=== PATIENT | male | born 1940 | race Caucasian/White ===

== ENCOUNTER 2021-10-30 21:30 | Inpatient (IN) | payer MEDICARE, SELFPAY ==
--- NOTE | 2021-10-30 21:31 | CTR_ITS ---
PROCEDURE INFORMATION: Exam: CT Head Without Contrast Exam date and time: 10/30/2021 9:30 PM Age: 81 years old Clinical indication: Speech disturbance and weakness, extremity and weakness, facial; Right; Patient HX: Patient at [facility] and witnessed to have sudden onset of RT facial droop with dysphasia and RT arm drift. ; Additional info: Symptoms of acute stroke TECHNIQUE: Imaging protocol: Computed tomography of the head without contrast. Radiation optimization: All CT scans at this facility use at least one of these dose optimization techniques: automated exposure control; mA and/or kV adjustment per patient size (includes targeted exams where dose is matched to clinical indication); or iterative reconstruction. Other technique: STROKE PROTOCOL was implemented. COMPARISON: 1. MRI Head w/wo* [id number] 02/01/2019 9:[address] head wo con* [id number] 06/24/2018 4:27 AM RADIATION DOSE METRICS: Total DLP (mGy-cm): 1789.46 FINDINGS: Brain: There is small chronic infarct right cerebellar hemisphere. There is moderate cortical atrophy. Low-density changes in the white matter are consistent with nonspecific small vessel chronic ischemic change. There is no intracranial mass, hemorrhage or edema. Cerebral ventricles: No ventriculomegaly. Paranasal sinuses: Visualized sinuses are unremarkable. No fluid levels. Mastoid air cells: Visualized mastoid air cells are well aerated. Bones/joints: Unremarkable. No acute fracture. Soft tissues: Unremarkable. CT/CT head wo con* [id number] IMPRESSION: 1. Old right cerebellar infarct. 2. Chronic ischemic changes. 3. No acute intracranial finding. ASSESSMENT: ASPECTS ([place] Stroke Program Early CT Score) is 10.
--- NOTE | 2021-10-30 21:31 | CTR_ITS ---
PROCEDURE INFORMATION: Exam: CT Angiography Head With Contrast, Arteriography Exam date and time: 10/30/2021 10:43 PM Age: 81 years old Clinical indication: Speech disturbance and weakness; Prior surgery; Surgery type: Cabg; Patient HX: Witnessed sudden onset of RT facial droop with RT arm drift and dysphasia. ; Additional info: CVA TECHNIQUE: Imaging protocol: Computed tomography angiography of the head with contrast. Exam focused on the arteries. 3D rendering (Not supervised by radiologist): MIP and/or 3D reconstructed images were created by the technologist. Radiation optimization: All CT scans at this facility use at least one of these dose optimization techniques: automated exposure control; mA and/or kV adjustment per patient size (includes targeted exams where dose is matched to clinical indication); or iterative reconstruction. Contrast material: VISI 320; Contrast volume: 95 ml; Contrast route: INTRAVENOUS (IV); COMPARISON: 1. CT head wo con* [id number] 10/30/2021 9:[address] Cervical Spine wo* [id number] 06/23/2018 1:49 PM RADIATION DOSE METRICS: Total DLP (mGy-cm): 2525.64 FINDINGS: ANTERIOR CIRCULATION: Right internal carotid artery: There is atherosclerotic calcification in the right cavernous carotid artery with moderate stenosis the internal carotid artery. Right middle cerebral artery: Unremarkable. No occlusion or significant stenosis. No aneurysm. Right anterior cerebral artery: Unremarkable. No occlusion or significant stenosis. No aneurysm. Left internal carotid artery: There is atherosclerotic calcification in the left cavernous carotid artery with moderate stenosis. Left middle cerebral artery: Unremarkable. No occlusion or significant stenosis. No aneurysm. Left anterior cerebral artery: Unremarkable. No occlusion or significant stenosis. No aneurysm. POSTERIOR CIRCULATION: Right vertebral artery: There is mild focal atherosclerotic plaque and stenosis mid right V4 vertebral artery segment. 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 Basilar artery: Unremarkable. No occlusion or significant stenosis. No aneurysm. Right posterior cerebral artery: Unremarkable. No occlusion or significant stenosis. No aneurysm. Left posterior cerebral artery: Unremarkable. No occlusion or significant stenosis. No aneurysm. Brain: No definite mass, mass effect, or midline shift. Cerebral ventricles: No ventriculomegaly. Bones/joints: Unremarkable. No acute fracture. Soft tissues: Unremarkable. PROCEDURE INFORMATION: Exam: CT Angiography Neck With Contrast Exam date and time: 10/30/2021 10:43 PM Age: 81 years old Clinical indication: Speech disturbance and weakness; Prior surgery; Surgery type: Cabg; Patient HX: Witnessed sudden onset of RT facial droop with RT arm drift and dysphasia. ; Additional info: CVA TECHNIQUE: Imaging protocol: Computed tomography angiography of the neck with contrast. 3D rendering (Not supervised by radiologist): MIP and/or 3D reconstructed images were created by the technologist. Radiation optimization: All CT scans at this facility use at least one of these dose optimization techniques: automated exposure control; mA and/or kV adjustment per patient size (includes targeted exams where dose is matched to clinical indication); or iterative reconstruction. Contrast material: VISI 320; Contrast volume: 95 ml; Contrast route: INTRAVENOUS (IV); COMPARISON: 1. CT head wo con* [id number] 10/30/2021 9:[address] Cervical Spine wo* [id number] 06/23/2018 1:49 PM RADIATION DOSE METRICS: Total DLP (mGy-cm): 2525.64 FINDINGS: Right common carotid artery: No stenosis. No dissection or occlusion. Right internal carotid artery: There is atherosclerotic plaque at the right carotid bifurcation and in the proximal right internal carotid artery with approximately 20% stenosis as measured according to the NASCET criteria. There is also mild stenosis at the origin of the right internal carotid artery. There is very severe stenosis in the 80% range in the distal right internal carotid artery just below the carotid foramen. Right external carotid artery: No occlusion or stenosis of the origin. Left common carotid artery: No stenosis. No dissection or occlusion. Left internal carotid artery: There is calcified atherosclerotic plaque in the proximal left internal carotid artery with proximally 70-80% % stenosis as measured according to the NASCET criteria. Left external carotid artery: No occlusion or stenosis of the origin. Right vertebral artery: Right vertebral artery is dominant. There is moderate focal stenosis at the origin of the right vertebral artery. 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 Soft tissues: Normal. No significant soft tissue swelling. Bones/joints: No acute fracture. CT/CT angio headneck* [id number] IMPRESSION: No major intracranial vascular occlusion. IMPRESSION: 1. 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 2. Mild stenosis proximal right internal carotid artery. 3. Severe stenosis proximal left internal carotid artery. 4. Moderate stenosis origin of right vertebral artery REFERENCES: NASCET CRITERIA. The degree of internal carotid artery stenosis is based on NASCET criteria. Normal is no stenosis. Mild is less than 50% stenosis. Moderate is 50-69% stenosis. Severe is 70% to 99% stenosis. Total occlusion is no detectable patent lumen.
--- NOTE | 2021-10-30 21:31 | ECG_ITS ---
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 Measurements Intervals [place] Rate: 83 P: 53 NV: 173 QRS: -25 QRSD: 166 T: 159 QT: 439 QTc: 517 Interpretive Statements SINUS RHYTHM POSSIBLE LEFT ATRIAL ENLARGEMENT [-0.1mV P-WAVE IN V1/V2] LEFT BUNDLE BRANCH BLOCK [120+ ms QRS DURATION, 80+ ms Q/S IN V1/V2, 85+ ms R IN I/aVL/V5/V6] Compared to ECG 08/20/2018 15:03:05 Sinus tachycardia no longer present Electronically Signed On 10-31-2021 15:01:25 CDT by Sylvie Najera M.D. [id number]
[2021-10-30 21:32] VITALS: BP 145/77; PULSE 85; RESP 16; TEMP 36.6; O2SAT 95; BMI 35.4
--- NOTE | 2021-10-30 21:32 | W.ED.NEUROSD ---
HPI - Neuro Symptoms/Deficit General: Chief Complaint: Neuro Symptoms/Deficit Stated Complaint: stroke Time Seen by Provider: 10/30/21 21:31 History of Present Illness: 81-year-old presents due to concern for stroke. At approximately 830 he had a syncopal episode at [facility] and when he woke up he had slurred speech and right facial droop. Denies any numbness or tingling. Patient is on baby aspirin. Denies any pain. Blood sugar per EMS read was high Review of Systems Narrative: - CONSTITUTIONAL: Denies weight loss, fever and chills. - HEENT: Denies changes in vision and hearing. - RESPIRATORY: Denies SOB and cough. - CV: Denies palpitations and CP. - GI: Denies abdominal pain, nausea, vomiting and diarrhea. - : Denies dysuria and urinary frequency. - MSK: Denies myalgia and joint pain. - SKIN: Denies rash and pruritus. - NEUROLOGICAL: As above - PSYCHIATRIC: Denies suicidal ideation PFS ED PFSH: Medical History CAD (coronary artery disease) CHF (congestive heart failure), NYHA class II Diabetes mellitus Essential (primary) hypertension YANIV (obstructive sleep apnea) Polymyalgia rheumatica Surgical History History of aortic valve replacement Family History Other Diabetes Heart disease Hypertension Stroke Social History Smoking and tobacco status: never smoked Alcohol intake: former History of recent travel: No Current gender identity: Male Physical Exam Narrative: EXAM NARRATIVE: - GENERAL: Alert and oriented x 3. No acute distress. Well-nourished. - EYES: EOMI. Anicteric. - HENT: Atraumatic, no C-spine tenderness. Moist mucous membranes. No scleral icterus. No cervical lymphadenopathy. - LUNGS: Clear to auscultation bilaterally. No accessory muscle use. Equal lung sounds bilaterally. No respiratory distress. - CARDIOVASCULAR: Regular rate and rhythm. No murmur. No JVD. - ABDOMEN: Soft, non-tender and non-distended. Negative CVA tenderness bilaterally, no rebound or guarding, negative Park sign. No palpable masses. - EXTREMITIES: No edema. Non-tender. - SKIN: No rashes or lesions. Warm. - NEUROLOGIC: No meningismus or focal neurological deficits. CN II-XII grossly intact. All reported symptoms appears to resolve by time of examination. - PSYCHIATRIC: Cooperative. Appropriate mood and affect. Course Vital Signs: Vital signs: Vital Signs Temperature 97.8 F 10/30/21 21:32 Pulse Rate 82 10/30/21 22:17 Respiratory Rate 18 10/30/21 22:17 Blood Pressure 137/87 10/30/21 22:17 Pulse Oximetry 96 10/30/21 22:17 MDM - Neuro Symptoms/Deficit Medical Decision Making 81-year-old gentleman presents due to right-sided weakness and slurred speech after syncopal episode at [facility]. Blood sugar was initially very high. Upon initially arriving at the ambulance bay he had resolving weakness but still had very mild slurred speech. Upon repeat evaluation after return from CT scan her symptoms have completely resolved. Blood sugar is elevated 600s. Remainder of lab work unremarkable. Blood sugar improving with insulin. No sign of DKA. CT scan does not reveal any intracranial hemorrhage. Discussed with teleneurology who at this time does not recommend TPA due to significant improvement in symptoms. Remainder of lab work and imaging reviewed. Discussed with hospitalist and they agreed patient would benefit from admission. Patient admitted in stable condition. Further evaluation management per hospitalist team. Lab Data : 10/30/21 21:44 10/30/21 21:[address] 10/30/21 21:31 IMPRESSION: 1. Old right cerebellar infarct. 2. Chronic ischemic changes. 3. No acute intracranial finding. ASSESSMENT: ASPECTS ([place] Stroke Program Early CT Score) is 10. Laboratory Results WBC 7.3 10^3/uL (4.0-10.0) 10/30/21 21:44 RBC 5.09 10^6/uL (4.1-5.3) 10/30/21 21:44 Hgb 14.3 g/dL (11.7-16.6) 10/30/21 21:44 Hct 45.1 % (42.0-52.0) 10/30/21 21:44 MCV 88.6 fl (80-94) 10/30/21 21:44 MCH 28.1 pg (28.0-34.0) 10/30/21 21:44 MCHC 31.7 g/dL (30.0-36.0) 10/30/21 21:44 RDW 13.6 % (12.1-15.1) 10/30/21 21:44 Plt Count 214 10^3/cmm (130-400) 10/30/21 21:44 MPV 12.7 fL (7.4-10.4) H 10/30/21 21:44 Neut % (Auto) 59.6 % 10/30/21 21:44 Lymph % (Auto) 29.2 % 10/30/21 21:44 Blair % (Auto) 8.6 % 10/30/21 21:44 Eos % (Auto) 1.1 % 10/30/21:44 Baso % (Auto) 1.2 % 10/30/21 21:44 Neut # (Auto) 4.32 10^3/uL (1.8-7.7) 10/30/21 21:44 Lymph # (Auto) 2.1 10^3/uL (0.8-4.8) 10/30/21 21:44 Blair # (Auto) 0.6 10^3/uL (0.2-0.9) 10/30/21 21:44 Eos # (Auto) 0.1 10^3/uL (0.0-0.8) 10/30/21 21:44 Baso # (Auto) 0.1 10^3/uL (0.0-0.1) 10/30/21 21:44 Nucleated RBC % (auto) 0 % 10/30/21 21:44 Nucleated RBCs # 0.0 /100WBC 10/30/21 21:44 Specimen Type Arterial 10/30/21 22:18 Sample Site Radial, right 10/30/21 22:18 ABG pH 7.40 (7.35-7.45) 10/30/21 22:18 ABG pCO2 35.9 mmHg (35-45) 10/30/21 22:18 ABG pO2 69.9 mmHg (80.0-100.0) L 10/30/21 22:18 ABG HCO3 22.2 mmol/L (22-26) 10/30/21 22:18 ABG O2 Saturation 93.5 10/30/21 22:18 ABG Base Excess -2.0 mmol/L (-2.0-2.0) 10/30/21 22:18 Shabbir Test Pos 10/30/21 22:18 A-a O2 Gradient 4.4 mmHg (5-10) L 10/30/21 22:18 Hematocrit 44.9 % (42-52) 10/30/21 22:18 Hgb O2 Saturation 92.1 % (95-100) L 10/30/21 22:18 Carboxyhemoglobin 0.5 %THgb (0.4-20.1) 10/30/21 22:18 Methemoglobin 1.0 % (0.4-1.5) 10/30/21 22:18 Total Hemoglobin 14.7 g/dL (14-18) 10/30/21 22:18 Sodium 138.0 mmol/L (131-143) 10/30/21 22:18 Potassium 3.2 mmol/L (3.5-5.0) L 10/30/21 22:18 Glucose 424.0 mg/dL (70-115) H 10/30/21 22:18 Ionized Calcium 1.2 mmol/L (1.1-1.4) 10/30/21 22:18 FiO2 21.0 % 10/30/21 22:18 [employer] Vice President ID Cwalters 10/30/21 22:18 Sodium 130 mmol/L (136-145) L 10/30/21 21:44 Potassium 4.3 mmol/L (3.5-5.1) 10/30/21 21:44 Chloride 94 mmol/L (98-107) L 10/30/21 21:44 Carbon Dioxide 21 mmol/L (22-29) L 10/30/21 21:44 Anion Gap 19.3 (5-19) H 10/30/21 21:44 BUN 15 mg/dL (8-23) 10/30/21 21:44 Creatinine 1.0 mg/dL (0.7-1.2) 10/30/21 21:44 GFR Calculation Not Reportable 10/30/21 21:44 Glucose 677 mg/dL (65-115) H* 10/30/21 21:44 POC Glucose > 600 mg/dL (70-110) H* 10/30/21 21:38 Calculated Osmolality 303 mOsm/kg (285-295) H 10/30/21 21:44 Calcium 8.4 mg/dL (8.5-10.5) L 10/30/21 21:44 Total Bilirubin 0.3 mg/dL (0.15-1.2) 10/30/21 21:44 AST 11 U/L (0-40) 10/30/21 21:44 ALT 6 U/L (0-41) 10/30/21 21:44 Alkaline Phosphatase 113 IU/L (40-130) 10/30/21 21:44 Total Protein 5.8 g/dL (6.6-8.7) L 10/30/21 21:44 Albumin 4.1 g/dL (3.5-5.2) 10/30/21 21:44 Globulin 1.7 g/dL (1.3-4.6) 10/30/21 21:44 Critical Care Time Critical Care Time: Critical Care Time: Yes Total Critical Care Time: 30 Attestation: This case had a high probability of a clinically significant, sudden, or life threatening deterioration of this patient's condition which required my full and direct attention, intervention and personal management. Discharge Plan Discharge Condition: Stable Prescriptions: No Action aspirin [Adult Aspirin Regimen] 81 mg tablet,delayed release (DR/EC) 81 mg PO DAILY 0RF prednisone 10 mg tablet 10 mg PO DAILY Qty: 90 3RF simvastatin 40 mg tablet 40 mg PO DAILY 0RF amlodipine 5 mg tablet 5 mg PO DAILY 0RF metoprolol tartrate 25 mg tablet 25 mg PO DAILY 0RF hydroxychloroquine [Plaquenil] 200 mg tablet 200 mg PO DAILY Qty: 90 3RF metformin 850 mg tablet 850 mg PO TID Qty: 90 3RF furosemide 40 mg tablet 40 mg PO DAILY Qty: 90 3RF potassium chloride 10 mEq capsule, extended release 10 meq PO DAILY Qty: 90 3RF Humulin N NPH Insulin KwikPen 100 unit/mL (3 mL) insulin pen 30 unit SUBCUT BID Qty: 3 3RF Referrals: Gee Natarajan MD [Primary Care Provider] - Coding Level of Care Code ED [employer] Concierge for Dominicg Ana
[2021-10-30 21:44] LABS: Glucose Point of Care > 600 mg/dL (70-110)
[2021-10-30] MEDS: insulin regular-human 100 units/1 mL 10 UNIT IVP (21:47)
[2021-10-30 21:50] LABS: Basophils # 0.1 10^3/uL (0.0-0.1); Basophils % 1.2 %; Eosinophils # 0.1 10^3/uL (0.0-0.8); Eosinophils % 1.1 %; Hematocrit 45.1 % (42.0-52.0); Hemoglobin 14.3 g/dL (11.7-16.6); Lymphocytes # 2.1 10^3/uL (0.8-4.8); Lymphocytes % 29.2 %; Mean Corpuscular HGB Conc 31.7 g/dL (30.0-36.0); Mean Corpuscular Hemoglobin 28.1 pg (28.0-34.0); Mean Corpuscular Volume 88.6 fl (80-94); Mean Platelet Volume 12.7 fL (7.4-10.4); Monocytes # 0.6 10^3/uL (0.2-0.9); Monocytes % 8.6 %; Neutrophils # 4.32 10^3/uL (1.8-7.7); Neutrophils % 59.6 %; Nucleated Red Blood Cells % 0 %; Platelet Count 214 10^3/cmm (130-400); Red Blood Count 5.09 10^6/uL (4.1-5.3); Red Cell Distribution Width 13.6 % (12.1-15.1); White Blood Count 7.3 10^3/uL (4.0-10.0)
[2021-10-30] MEDS: sodium chloride 0.9% 500 ML 999 ML IV (21:53)
[2021-10-30 22:17] VITALS: BP 137/87; PULSE 82; RESP 18; O2SAT 96
[2021-10-30 22:18] LABS: Alanine Aminotransferase 6 U/L (0-41); Albumin Level 4.1 g/dL (3.5-5.2); Alkaline Phosphatase 113 IU/L (40-130); Anion Gap 19.3 (5-19); Aspartate Amino Transferase 11 U/L (0-40); Blood Urea Nitrogen 15 mg/dL (8-23); Calcium 8.4 mg/dL (8.5-10.5); Carbon Dioxide 21 mmol/L (22-29); Chloride 94 mmol/L (98-107); Globulin 1.7 g/dL (1.3-4.6); Osmolality Calculated 303 mOsm/kg (285-295); Potassium 4.3 mmol/L (3.5-5.1); Sodium 130 mmol/L (136-145); Total Bilirubin 0.3 mg/dL (0.15-1.2); Total Protein 5.8 g/dL (6.6-8.7)
[2021-10-30 22:19] LABS: Glucose 677 mg/dL (65-115)
[2021-10-30 22:29] LABS: ABG PCO2 35.9 mmHg (35-45); Alveolar-Arterial Oxygen Gradi 4.4 mmHg (5-10); Arterial Blood Gas Hematocrit 44.9 % (42-52); Blood Gas Allen Test Pos; Blood Gas Sample Site Radial, right; Blood Gas Sample Type Arterial; Carboxyhemoglobin 0.5 %THgb (0.4-20.1); HCO3 ABG 22.2 mmol/L (22-26); HGB O2 Sat 92.1 % (95-100); Ionized Calcium Level - ABG 1.2 mmol/L (1.1-1.4); Oxygen Saturation ABG 93.5; PO2 ABG 69.9 mmHg (80.0-100.0); Potassium Level - ABG 3.2 mmol/L (3.5-5.0); Total Hemoglobin 14.7 g/dL (14-18)
[2021-10-30 22:39] LABS: INR 0.91 (0.8-1.2)
[2021-10-30 22:42] LABS: Glucose Point of Care 424 mg/dL (70-110)
[2021-10-30] MEDS: iodixanol 320 mg/mL 100mL Btl IV (22:42)
[2021-10-30 23:04] LABS: Add Urine Microscopic? NO; Charge for UA Resulting for Rev
--- NOTE | 2021-10-30 23:11 | XRR_ITS ---
PROCEDURE INFORMATION: Exam: XR Chest Exam date and time: 10/30/2021 11:29 PM Age: 81 years old Clinical indication: Other: Stroke like symptoms; Prior surgery; Surgery type: Cabg; Additional info: Cp TECHNIQUE: Imaging protocol: XR of the chest. Views: 1 view. COMPARISON: CR Chest 1 [place] [id number] 08/25/2018 3:44 AM FINDINGS: Lungs: No focal pulmonary infiltrate is identified. Pleural spaces: Unremarkable. No pleural effusion. No pneumothorax. Heart/Mediastinum: Heart is within normal limits of size. Vasculature: There is atherosclerotic calcification of the aortic arch. Bones/joints: Sternotomy wires and mediastinal surgical clips are present, consistent with previous coronary arterial bypass grafting. XR/XR chest 1V portable [id number] IMPRESSION: No acute infiltrate.
[2021-10-30 23:15] LABS: Amphetamines Screen Urine Negative (Negative); Barbiturates Screen Urine Negative (Negative); Benzodiazepines Screen Urine Negative (Negative); Bilirubin Urine Neg (Negative); Blood Urine Neg (Negative); Cocaine Screen Urine Negative (Negative); Glucose Urine UA 4+ (Normal); Ketones Urine 1+ (Negative); Leukocyte Esterase Urine Negative (Negative); Nitrate Urine Negative (Negative); Opiate Screen Urine Negative (Negative); PCP Screen Urine Negative (Negative); Protein Urine Neg (Negative); THC Screen Urine Negative (Negative); Urine Appearance Clear (CLEAR); Urine Color Straw (Yellow); Urobilinogen Urine Norm (Negative); pH Urine 5 (5-7)
[2021-10-30 23:37] LABS: Troponin(5th) Baseline 40 ng/L (0-15)
[2021-10-30 23:55] VITALS: BMI 35.0
[2021-10-30 23:58] VITALS: BP 163/92; PULSE 93; RESP 20; TEMP 36.8; O2SAT 95
[2021-10-30 23:59] VITALS: PULSE 75
[2021-10-31] VITALS (9 sets, daily range): BP systolic 109–144; BP diastolic 53–86; PULSE 71–102; RESP 16–20; TEMP 36.4–37.3; O2SAT 90–97
--- NOTE | 2021-10-31 | USCV_ITS ---
Mayo Haile Age: 81 Gender: M : 1940 Exam Date: 10/31/2021 07:56 Ordering Phys: Jose L Tello DO Technologist: Exam Location: [facility] [place]ication: chest pain BP: 132 / 78 HR: 71 Rhythm: Sinus Technical Quality: Adequate MEASUREMENTS (Male / Female) Normal Values 2D ECHO LV Diastolic Diameter PLAX 3.6 cm 4.2 - 5.9 / 3.9 - 5.3 cm LV Systolic Diameter PLAX 2.9 cm IVS Diastolic Thickness 1.2 cm 0.6 - 1.0 / 0.6 - 0.9 cm IVS Systolic Thickness 1.8 cm LVPW Diastolic Thickness 1.2 cm 0.6 - 1.0 / 0.6 - 0.9 cm LVPW Systolic Thickness 1.7 cm LVOT Diameter 2.1 cm LV Ejection Fraction 2D Teich 42.9 % LV Ejection Fraction MOD 2C 54.0 % LV Ejection Fraction 2C AL 55.7 % LA Diameter 4.1 cm Aorta at Sinotubular Diameter 2.3 cm M-MODE Aortic Annulus Diameter 2.9 cm LA Ao Ratio MM 1.5 DOPPLER AV Peak Velocity 291.8 cm/s LVOT Peak Velocity 91.0 cm/s AV Area Cont Eq vti 1.2 cm squared AV Area Cont Eq pk 1.0 cm squared MV Peak Velocity 235.0 cm/s MV Area PHT 1.4 cm squared Mitral E to A Ratio 0.6 MV E' Velocity 78.5 cm/s Mitral E to MV E' Ratio 33.7 Mitral E to LV E' Lateral Ratio 27.6 Mitral E to LV E' Septal Ratio 44.6 TR Peak Velocity 210.7 cm/s TR Peak Gradient 17.8 mmHg TV Peak E Velocity 92.0 cm/s Right Atrial Pressure 3.0 mmHg Pulmonary Artery Systolic Pressu 20.8 mmHg PV Peak Velocity 106.0 cm/s FINDINGS Left Ventricle Normal left ventricular size and increased wall thickness, with no regional wall motion abnormalities. Low normal left ventricular systolic function with ejection fraction estimated at 55 %. Grade I diastolic dysfunction, moderately elevated filling pressures. Abnormal septal motion consistent with conduction abnormality. Right Ventricle Normal right ventricular size and systolic function. Right ventricular systolic pressure 20.8 mmHg. Right Atrium Normal right atrial size. Aneurysmal interatrial septum. Left Atrium Mildly increased left atrial size. Mitral Valve Severe mitral annular calcification. Thickened mitral valve. Moderate mitral valve stenosis with mean gradient of 7 mm Hg. Mild mitral valve regurgitation. Aortic Valve Aortic valve not well visualized. Moderate aortic valve stenosis, peak velocity 3.4 m/s, peak gradient 45 mm Hg, mean gradient 22 mmHg, ZHAO 1.1 cm squared. Dimensionless valve index 0.26. No aortic valve regurgitation. Tricuspid Valve Structurally normal tricuspid valve. No tricuspid valve stenosis. Trace tricuspid valve regurgitation. Pulmonic Valve Pulmonic valve not well visualized. Pericardium No pericardial effusion. Aorta Normal size aortic root and proximal ascending aorta. CONCLUSIONS 1. Normal left ventricular size and increased wall thickness, with no regional wall motion abnormalities. Low normal left ventricle systolic function. Left ventricular ejection fraction is estimated at 55 %. Grade I diastolic dysfunction, moderately elevated filling pressures. 2. Moderate aortic valve stenosis, peak velocity 3.4 m/s, peak gradient 45 mm Hg, mean gradient 22 mmHg, ZHAO 1.1 cm squared. Dimensionless valve index 0.26. 3. Moderate mitral valve stenosis with mean gradient of 7 mm Hg. Mild mitral valve regurgitation. 4. When compared to previous echocardiogram dated 08/21/2018, left ventricular systolic function seems to have improved. Aortic stenosis seems to have worsened but remains in moderate range. There seems to be mitral valve stenosis as well. Sylvie Najera MD (Electronically Signed) Final Date: 01 November 2021 18:59 S
--- NOTE | 2021-10-31 00:06 | PM.HP ---
Providers/Chief Complaint Admitting Physician: Jose L Tello DO Primary Care Provider: Gee Natarajan MD Chief Complaint: stroke History of Present Illness The patient is an 81-year-old male who was transferred to the emergency department due to slurred speech and right facial droop. However upon my encounter with the patient he really denies any symptoms. He I am uncertain as to what his baseline mentation is however after my encounter with the patient he may be expressing a minor expressive aphasia. He denies fever, rigors, nausea, vomiting, cough, wheeze, abdominal pain, diarrhea, myalgia, dysuria, chest pain, dyspnea, lightheadedness, dizziness, diaphoresis, palpitations, sense of rapid heartbeat, sensation of irregular heartbeat. The patient denies diplopia, blurry vision, dysphasia, dysphagia, appears as a/anesthesia/myasthenia of any part of his body. He presents for further evaluation Review of Systems General: Reports: 10 or more systems reviewed and unremarkable except in HPI and below Medications/Allergies Home Medications Medication Instructions Recorded Confirmed Last Taken Type amlodipine 5 mg tablet 5 mg PO DAILY 09/06/19 10/13/21 Unknown History metoprolol tartrate 25 mg tablet 25 mg PO DAILY 09/06/19 10/13/21 Unknown History simvastatin 40 mg tablet 40 mg PO DAILY 09/06/19 10/13/21 Unknown History aspirin 81 mg tablet,delayed 81 mg PO DAILY 09/13/19 10/13/21 Unknown History release (Adult Aspirin Regimen) metformin 850 mg tablet 850 mg PO TID #90 tab 06/05/20 10/13/21 Unknown Rx hydroxychloroquine 200 mg tablet 200 mg PO DAILY #90 tab 09/11/20 10/13/21 Unknown Rx (Plaquenil) furosemide 40 mg tablet 40 mg PO DAILY #90 tab 10/10/20 10/13/21 Unknown Rx potassium chloride 10 mEq 10 meq PO DAILY #90 cap 10/10/20 10/13/21 Unknown Rx capsule,extended release prednisone 10 mg tablet 10 mg PO DAILY #90 tab 11/17/20 10/13/21 Unknown Rx insulin NPH isoph U-100 human 100 30 unit (0.3 mL) SUBCUT BID #3 ml 07/21/21 10/13/21 Unknown Rx unit/mL (3 mL) subcutaneous pen (Humulin N NPH U-100 Insulin KwikPen) Allergies Allergy/AdvReac Type Severity Reaction Status Date / Time No Known Allergies Allergy Verified 10/13/21 13:37 PFSH Acute PFSH: Medical History CAD (coronary artery disease) CHF (congestive heart failure), NYHA class II Diabetes mellitus Essential (primary) hypertension YANIV (obstructive sleep apnea) Polymyalgia rheumatica Surgical History History of aortic valve replacement Family History Other Diabetes Heart disease Hypertension Stroke Social History Smoking and tobacco status: never smoked Alcohol intake: former History of recent travel: No Current gender identity: Male Vitals/I&O/Wt Last Vital Signs Temp 98.3 F 10/30/21 23:58 Pulse 93 10/30/21 23:58 Resp 20 H 10/30/21 23:58 BP 163/92 10/30/21 23:58 Pulse Ox 95 10/30/21 23:58 10/30/21 10/30/21 10/31/21 14:59 22:59 06:59 Intake Total 500 / 500 Balance 500 / 500 Weight last 48 hrs Weight 99.7 kg Physical Exam Narrative: General: -Alert -No acute distress -No dyspnea -No tachypnea Head: -Atraumatic -Normocephalic Eyes: -Pupils equally round and reactive to light and accommodation -Extraocular muscles intact Neurological: -Cranial nerves II-XII intact Neck: -No jugular venous distention -No thyromegaly -No cervical lymphadenopathy Heart: -Regular rate -Regular rhythm -No murmurs -No gallops -No rubs Lungs: -No wheeze -No rhonchi -No rales ? Abdomen: -Normal bowel sounds in all four quadrants -No rebound -No guarding -No tenderness Extremities: -2/4 pulse in all four extremities -No clubbing -No cyanosis -No edema -No calf tenderness present bilaterally -Negative Anoop?s sign bilaterally Musculoskeletal: -5/5 bilateral upper extremity strength -5/5 bilateral lower extremity strength -Sensorium of bilateral upper extremities are equal and intact -Sensorium of bilateral lower extremities are equal and intact ? Additional Details / Additional Findings / Exceptions / Miscellaneous: Data : 10/30/21 21:44 10/30/21 21:44 A&P Assessment and plan (1) Inflammatory arthritis: Status: Acute Plan TIA. Patient is a poor to fair historian at best. CT head unremarkable however CT of the head and neck demonstrates severe stenosis of the left internal carotid artery, severe stenosis of the right internal carotid artery, moderate stenosis at the origin of the right vertebral artery. I will discuss these findings with vascular surgery to determine whether the patient may be kept at this facility versus requiring transfer. Monitor patient on telemetry and checks her cardiac enzymes. Check TSH, free T4, B12, folate, magnesium level. In the morning we will recheck EKG and check fasting lipid panel. Physical therapy consult pending. Neuro checks every 4 hours. Urinalysis unremarkable. MRI of the brain without contrast pending. Echocardiogram pending. Aspirin 81 Mill grams by mouth daily plus Lipitor 80 Mill cans by mouth daily at bedtime plus IV normal saline at 75 ML's per hour Documented history of prior CVA. Aspirin 81 Mill grams by mouth daily plus Lipitor 80 Mill grams by mouth daily at bedtime Peripheral vascular disease with severe right internal carotid artery stenosis, severe left internal carotid he artery stenosis, moderate stenosis at the origin of the right vertebral artery. Aspirin 81 Mill grams by mouth daily plus Lipitor 80 Mill grams by mouth daily at bedtime Hyponatremia. We will monitor sodium level intermittently. IV normal saline at 75 ML's per hour Polymyalgia rheumatica Obstructive sleep apnea. CPAP/BiPAP: Okay to use home device and/or pressure when sleeping if the patient uses CPAP/BiPAP at home .History of aortic valve replacement. Patient uncertain as to whether this mechanical versus bovine. Are pending for chest x-ray?portable. I will check PT/INR in the [place] that the patient is on anticoagulants at home in the [place] that this is a mechanical valve Inflammatory arthritis, not otherwise specified CHF. Echo Karg grams pending Coronary artery disease. Aspirin 81 Mill grams by mouth daily plus Lipitor 80 Mill grams by mouth daily at bedtime Diabetes. Will check fasting glucose before meals and at bedtime and provide insulin sliding scale plus insulin NPH 35 units subcu tensely twice a day Hyperlipidemia. Fasting lipid panel pending. Lipitor 80 Mill grams by mouth daily at bedtime Hypertension Obesity. The patient becomes regarding lifestyle modification Documented history of medical noncompliance. The patient becomes regarding medical compliance DVT Proflex is. Bilateral SCD Attestations Medical Necessity Statement*: The patient's anticipated length of stay is greater than 2 midnights given his evaluation for TIA as well as his hyponatremia Coding Level of Care Code Acute Batch Unloader for [facility] Diagnoses Inflammatory arthritis M19.90
[2021-10-31] MEDS: atorvastatin 40 mg Tablet 80 MG PO ×2 (00:26→20:26)
[2021-10-31] MEDS: sodium chloride 0.9% 1,000 ML 75 ML IV ×2 (00:26→12:38)
[2021-10-31] MEDS: insulin nph human 100 units/1 mL 35 UNIT SUBCUT ×3 (00:28→19:47)
--- NOTE | 2021-10-31 01:11 | ECG_ITS ---
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 Measurements Intervals [place] Rate: 82 P: 34 SC: 116 QRS: -6 QRSD: 165 T: 186 QT: 437 QTc: 511 Interpretive Statements SINUS RHYTHM WITH MARKED SINUS ARRHYTHMIA WITH SHORT SC INTERVAL LEFT BUNDLE BRANCH BLOCK [120+ ms QRS DURATION, 80+ ms Q/S IN V1/V2, 85+ ms R IN I/aVL/V5/V6] Compared to ECG 10/30/2021 21:37:49 Short SC interval now present Electronically Signed On 10-31-2021 15:13:09 CDT by Sylvie Najera M.D. [id number]
[2021-10-31 01:30] LABS: Troponin 5 2HR 39.96 ng/L (0-15)
[2021-10-31 01:31] LABS: Troponin 5 2HR Delta -0.04 ABS# (0-10)
[2021-10-31 01:39] LABS: Free T4 Free Thyroxine 1.05 ng/dL (0.82-1.77); Thyroid Stimulating Hormone 2.12 uIU/mL (0.27-4.20)
[2021-10-31 02:16] LABS: Vitamin B12 568 pg/mL (232-1245)
[2021-10-31 02:20] LABS: Folate Level 14.4 ng/mL (4.5-32.2)
--- NOTE | 2021-10-31 05:11 | ECG_ITS ---
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 Measurements Intervals [place] Rate: 97 P: 25 UT: 112 QRS: 0 QRSD: 161 T: 184 QT: 423 QTc: 538 Interpretive Statements SINUS RHYTHM WITH SHORT UT INTERVAL WITH OCCASIONAL SUPRAVENTRICULAR PREMATURE COMPLEXES LEFT BUNDLE BRANCH BLOCK [120+ ms QRS DURATION, 80+ ms Q/S IN V1/V2, 85+ ms R IN I/aVL/V5/V6] Compared to ECG 10/31/2021 00:56:48 Sinus arrhythmia no longer present Electronically Signed On 10-31-2021 15:06:20 CDT by Sylvie Najera M.D. [id number]
[2021-10-31 06:02] LABS: Troponin 5 6HR 41.96 ng/L (0-15)
[2021-10-31 06:05] LABS: Troponin 5 6HR Delta 1.96 ng/L (0-12)
[2021-10-31 06:08] LABS: Anion Gap 15.3 (5-19); Blood Urea Nitrogen 12 mg/dL (8-23); Carbon Dioxide 22 mmol/L (22-29); Chloride 102 mmol/L (98-107); Chol HDL Ratio 9.97 mg/dL (1.0-5.00); Cholesterol 289 mg/dL (0-200); Glucose 303 mg/dL (65-115); HDL Cholesterol 29 mg/dL (60-100); LDL Cholesterol Calculated 218 mg/dL (50-129); LDL HDL Ratio 7.52 RATIO (0.00-3.22); Osmolality Calculated 293 mOsm/kg (285-295); Potassium 3.3 mmol/L (3.5-5.1); Sodium 136 mmol/L (136-145); Triglycerides 210 mg/dL (0-150)
[2021-10-31 06:47] LABS: Glucose Point of Care 299 mg/dL (70-110)
[2021-10-31 07:21] LABS: Glucose Point of Care 271 mg/dL (70-110)
[2021-10-31 07:21] LABS: Glucose Point of Care 286 mg/dL (70-110)
[2021-10-31] MEDS: insulin lispro 100 unit/1 mL SUBCUT ×3 (08:10→22:49)
[2021-10-31 11:48] LABS: Glucose Point of Care 215 mg/dL (70-110)
--- NOTE | 2021-10-31 13:16 | PM.MISC ---
Miscellaneous Note Purpose of Documentation: Progress note Note: Seen this morning. Patient is no longer having any symptoms. No dysarthria noted. Patient able to move all 4 extremities. He states he is really sleepy and would like to sleep. He will be going for MRI today. He states his son will be coming in later today. Patient is definitely a poor historian. Echocardiogram pending MRI pending. Lungs clear to auscultation, Neuro: Nonfocal Management as per initial history and physical documented. Sodium normal 136 today. Replete potassium.
[2021-10-31 17:55] LABS: Glucose Point of Care 280 mg/dL (70-110)
--- NOTE | 2021-10-31 18:41 | PC.PHAR ---
pt states she is unable to verify home meds; to call back tomorrow to verify bottles
[2021-11-01] VITALS (8 sets, daily range): BP systolic 119–155; BP diastolic 63–96; PULSE 62–88; RESP 16–18; TEMP 36.4–37.2; O2SAT 92–98
[2021-11-01] MEDS: sodium chloride 0.9% 1,000 ML 75 ML IV (02:06)
[2021-11-01] MEDS: insulin nph human 100 units/1 mL 35 UNIT SUBCUT ×2 (06:25→18:04)
[2021-11-01 06:39] LABS: Glucose Point of Care 496 mg/dL (70-110)
[2021-11-01 06:39] LABS: Glucose Point of Care 113 mg/dL (70-110)
[2021-11-01] MEDS: aspirin 81 mg EC Tablet PO (09:13)
--- NOTE | 2021-11-01 09:13 | MRR_ITS ---
PROCEDURE INFORMATION: Exam: MR Head Without Contrast Exam date and time: 11/01/2021 12:29 PM Age: 81 years old Clinical indication: Other: TIA TECHNIQUE: Imaging protocol: MR of the head without contrast. COMPARISON: CT head wo con* [id number] 10/30/2021 9:30 PM FINDINGS: Brain: There is an acute to subacute infarct noted involving the left anterior thalamus. Moderate to severe central and cortical atrophy and small vessel ischemic disease. There is no intracranial bleed. Cerebral ventricles: Normal. No ventriculomegaly. Bones/joints: Unremarkable. Paranasal sinuses: Normal as visualized. No acute sinusitis. Mastoid air cells: Normal as visualized. No mastoid effusion. Orbital cavities: Unremarkable. Soft tissues: Unremarkable. MR/MR head wo con* [id number] IMPRESSION: Nonhemorrhagic acute left thalamic infarct measuring 1 cm.
[2021-11-01 11:21] LABS: Glucose Point of Care 214 mg/dL (70-110)
[2021-11-01] MEDS: insulin lispro 100 unit/1 mL SUBCUT ×2 (11:49→18:04)
--- NOTE | 2021-11-01 12:22 | PC.NURSE ---
Patient was taken to get an MRI.
--- NOTE | 2021-11-01 13:47 | P.PN_ITS ---
Subjective Subjective: Patient seen and examined this morning. He appears a little confused. He talk to me yesterday and told me that his son will be coming to visit however today he stated that he does acknowledge that his son's name is Mayo but he does not remember at all having that conversation with me. Patient will be going for his MRI today. No acute events overnight. Speech swallow therapy currently evaluating the patient. Vitals/I&O/Wt Last Vital Signs Temp 97.5 F L 11/01/21 12:00 Pulse 86 11/01/21 12:00 Resp 18 11/01/21 12:00 BP 119/75 11/01/21 12:00 Pulse Ox 96 11/01/21 12:00 10/31/21 11/01/21 11/01/21 22:59 06:59 14:59 Intake Total 1100 / 2360 480 / 480 Output Total 300 / 300 200 / 500 Balance -300 / 960 900 / 1860 480 / 480 Weight last 48 hrs Weight 98.515 kg Weight 99.7 kg Physical Exam Narrative: General: Alert oriented to self and place. Believes the president is Vega. Patient seen laying in bed on his right side talking to speech therapy. HEENT: Normocephalic, atraumatic, EOMI, breathing room air. Cardio: Regular rate rhythm, normal S1-S2, no murmurs rubs gallops, Respiratory: Good bilateral air entry, no wheezes no rhonchi appreciated GI: Abdomen soft, nontender, nondistended, bowel sounds + Extremities: no edema, no cyanosis Neuro: Patient is following commands but unable to do a thorough neuro assessment at this time due to patient being seen by speech therapy. Data : 10/30/21 21:44 10/31/21 04:40 A&P Assessment and plan (1) Inflammatory arthritis: Status: Acute (2) Impacted cerumen, bilateral: Status: Acute (3) Polymyalgia rheumatica: Status: Acute (4) YANIV (obstructive sleep apnea): Status: Acute (5) Essential (primary) hypertension: Status: Acute (6) Diabetes mellitus: Status: Acute (7) CHF (congestive heart failure), NYHA class II: Status: Acute (8) CAD (coronary artery disease): Status: Acute Plan #TIA #History of prior CVA #PAD #Hyponatremia #Polymyalgia Rheumatica #Obstructive Sleep Apnnea #Hx of AV replacement #Hx of CHF, CAD #Diabetes Mellitus #Hyperlipidemia #Hypertension #Obesity -CT head unremarkable however CT of the head and neck demonstrates severe stenosis of the left internal carotid artery, severe stenosis of the right internal carotid artery, moderate stenosis at the origin of the right vertebral artery.? - MRI brain to be done today. Further management as per results. - Monitor patient on telemetry to rule out occult arrythmia - PT/OT - Speech swallow eval - COntinue on aspirin, atorvastatin. Will hold off on Plavix due to potential for surgery for Carotid - Dr. Mccord not information systems architect today. Consult in AM for further recommendations Full Code DVT PPX: heparin Attempted to contact family and update but unable to get them on the phone. Could not leave voicemail. Attestations Medical Necessity Statement*: > 48 hour stay. Coding Level of Care Code Acute Plant Guard for [facility] Diagnoses Inflammatory arthritis M19.90 Impacted cerumen, bilateral H61.23 Polymyalgia rheumatica M35.3 YANIV (obstructive sleep apnea) G47.33 Essential (primary) hypertension I10 Diabetes mellitus E11.9 CHF (congestive heart failure), NYHA class II I50.9 CAD (coronary artery disease) I25.10
[2021-11-01 14:10] LABS: Basophils # 0.1 10^3/uL (0.0-0.1); Eosinophils # 0.1 10^3/uL (0.0-0.8); Eosinophils % 1.3 %; Hematocrit 45.5 % (42.0-52.0); Hemoglobin 14.1 g/dL (11.7-16.6); Lymphocytes # 2.3 10^3/uL (0.8-4.8); Lymphocytes % 29.4 %; Mean Corpuscular Hemoglobin 28.5 pg (28.0-34.0); Mean Corpuscular Volume 92.1 fl (80-94); Mean Platelet Volume 12.4 fL (7.4-10.4); Monocytes # 0.6 10^3/uL (0.2-0.9); Monocytes % 7.7 %; Neutrophils # 4.81 10^3/uL (1.8-7.7); Neutrophils % 60.3 %; Nucleated Red Blood Cells % 0 %; Platelet Count 213 10^3/cmm (130-400); Red Blood Count 4.94 10^6/uL (4.1-5.3); Red Cell Distribution Width 13.9 % (12.1-15.1)
[2021-11-01 14:26] LABS: Anion Gap 14.3 (5-19); Blood Urea Nitrogen 13 mg/dL (8-23); Calcium 8.8 mg/dL (8.5-10.5); Carbon Dioxide 22 mmol/L (22-29); Chloride 107 mmol/L (98-107); Glucose 140 mg/dL (65-115); Magnesium 1.8 mg/dL (1.7-2.3); Osmolality Calculated 292 mOsm/kg (285-295); Potassium 3.3 mmol/L (3.5-5.1); Sodium 140 mmol/L (136-145)
[2021-11-01] MEDS: heparin 5,000 unit/mL INJ 1 mL 5000 UNIT SUBCUT ×2 (14:43→22:36)
--- NOTE | 2021-11-01 15:27 | USCV_ITS ---
Mayo Haile Age: 81 Gender: M : 1940 Exam Date: 11/01/2021 20:45 Ordering Phys: Jenny Petersen MD Technologist: Tomi Oscar [place] [facility] [place]: stroke BP: 133 / 63 HR: 77 Rhythm: Sinus Technical Quality: Adequate MEASUREMENTS (Male / Female) Normal Values 2D ECHO LV Diastolic Diameter PLAX 3.1 cm 4.2 - 5.9 / 3.9 - 5.3 cm LV Systolic Diameter PLAX 2.6 cm IVS Diastolic Thickness 1.8 cm 0.6 - 1.0 / 0.6 - 0.9 cm IVS Systolic Thickness 1.4 cm LVPW Diastolic Thickness 2.1 cm 0.6 - 1.0 / 0.6 - 0.9 cm LVPW Systolic Thickness 2.0 cm LVOT Diameter 2.0 cm LV Ejection Fraction 2D Teich 28.9 % LV Ejection Fraction MOD 2C 26.2 % LV Ejection Fraction 2C AL 26.5 % LA Diameter 4.2 cm LA Width 4.6 cm LA Height 4.2 cm Aorta at Sinotubular Diameter 2.1 cm M-MODE Aortic Annulus Diameter 2.4 cm LA Ao Ratio MM 1.7 DOPPLER AV Peak Velocity 257.8 cm/s LVOT Peak Velocity 88.0 cm/s AV Area Cont Eq vti 1.3 cm squared AV Area Cont Eq pk 1.1 cm squared MV Area PHT 3.2 cm squared Mitral E to A Ratio 0.6 MV E' Velocity 60.0 cm/s Mitral E to MV E' Ratio 23.7 Mitral E to LV E' Lateral Ratio 26.4 Mitral E to LV E' Septal Ratio 21.5 Right Atrial Pressure 5.0 mmHg PV Peak Velocity 66.0 cm/s FINDINGS Left Ventricle Diffuse hypokinesia of the left ventricle. Mild concentric left trickle hypertrophy. Ejection fraction around 35 to 40%. Segmental wall motion analysis difficult.Grade I/IV diastolic dysfunction (abnormal relaxation filling pattern), normal to mildly elevated filling pressures. Right Ventricle Possibly of normal size and ejection fraction Right Atrium Possibly of normal size Left Atrium Mildly dilated LV cavity. Mitral Valve Thickened mitral valve. Moderate mitral annular calcification. Trace mitral valve regurgitation. Aortic Valve Thickened aortic valve. Moderate aortic valve stenosis. Peak velocity of 2.64 meters per second with a peak gradient of 28 and a mean gradient of 14mmHg. Valve area is calculated to be 1.1 cm squire Tricuspid Valve Thickened tricuspid valve. Pulmonic Valve Not visualized well Pericardium No pericardial effusion. Aorta Normal aortic annulus size. CONCLUSIONS Diffuse hypokinesia of the left ventricle. Mild concentric left trickle hypertrophy. Ejection fraction around 35 to 40%. Segmental wall motion analysis difficult. Grade I/IV diastolic dysfunction (abnormal relaxation filling pattern), normal to mildly elevated filling pressures. Moderate aortic valve stenosis with a valve area 1.1 cm squire. Peak gradient of 28 with a mean gradient of 14 mmHg. Thickened tricuspid valve. Mildly dilated LV cavity. There is no pericardial effusion. Bubble study was suboptimal quality. Cannot interpret. Technically difficult study because of the poor ultrasonic window. Compared to the study from 08/21/2018, the LV ejection fraction has not changed significantly Dr Tricia Marcos MD [facility] (Electronically Signed) Final Date: 02 November 2021 21:20 S
--- NOTE | 2021-11-01 15:27 | USCV_ITS ---
Mayo Haile Age: 81 Gender: M : 1940 Exam Date: 11/01/2021 20:49 Ordering Phys: Jenny Petersen MD Technologist: Tomi Oscar Exam Location: [facility] [place] Indication: carotid artery stenosis Risk Factors: Previous Vascular Surgery: Right Brachial BP: / Left Brachial BP: / Right Left Velocity (cm/s) Spectral Plaque Velocity (cm/s) Spectral Plaque Syst/Diast Broadening Syst/Diast Broadening 47.40/ 14.30 Prox CCA 61.50 / 12.00 50.70/ 13.20 Mid CCA 57.30 / 12.00 57.50/ 10.90 Distal CCA 46.10 / 10.30 38.10/ 10.50 Prox ICA 43.60 / 11.10 32.90/ 10.50 Mid ICA 79.50 / 26.50 51.30/ 20.40 Distal ICA 64.90 / 17.90 48.60 ECA 73.50 0.89 ICA/CCA 1.29 Antegrade Vertebral Antegrade 19.70/ 7.70 cm/s 52.10/ 5.10 cm/s Tri Subclavian Tri 69.20 58.10 FINDINGS Moderate scattered dense plaques of the right bifurcation Mild plaque at the left bifurcation and proximal ICA Intimal thickening in the common carotid arteries bilaterally Antegrade flow in the vertebral arteries bilaterally CONCLUSIONS Moderate scattered dense plaques at the right bifurcation and proximal internal carotid artery, suggesting less than 50% stenosis Mild plaque at the left bifurcation and proximal ICA, suggesting less than 50% stenosis No significant stenosis in the subclavian, vertebral and external carotid arteries, based on the above finding Dr Tricia Marcos MD [facility] (Electronically Signed) Final Date: 02 November 2021 21:26 S
[2021-11-01 17:34] LABS: Glucose Point of Care 151 mg/dL (70-110)
[2021-11-01] MEDS: atorvastatin 40 mg Tablet 80 MG PO (20:44)
[2021-11-02] VITALS (7 sets, daily range): BP systolic 128–148; BP diastolic 67–80; PULSE 68–102; RESP 15–17; TEMP 36.5–36.8; O2SAT 95–98
[2021-11-02] MEDS: sodium chloride 0.9% 1,000 ML 75 ML IV (02:02)
[2021-11-02 05:01] LABS: Basophils # 0.1 10^3/uL (0.0-0.1); Eosinophils # 0.1 10^3/uL (0.0-0.8); Eosinophils % 1.5 %; Hematocrit 42.3 % (42.0-52.0); Hemoglobin 13.7 g/dL (11.7-16.6); Lymphocytes # 2.6 10^3/uL (0.8-4.8); Lymphocytes % 38.8 %; Mean Corpuscular HGB Conc 32.4 g/dL (30.0-36.0); Mean Corpuscular Hemoglobin 28.3 pg (28.0-34.0); Mean Corpuscular Volume 87.4 fl (80-94); Mean Platelet Volume 12.9 fL (7.4-10.4); Monocytes # 0.6 10^3/uL (0.2-0.9); Monocytes % 9.5 %; Neutrophils # 3.29 10^3/uL (1.8-7.7); Neutrophils % 48.9 %; Nucleated Red Blood Cells % 0 %; Platelet Count 222 10^3/cmm (130-400); Red Blood Count 4.84 10^6/uL (4.1-5.3); Red Cell Distribution Width 13.8 % (12.1-15.1); White Blood Count 6.7 10^3/uL (4.0-10.0)
[2021-11-02 05:11] LABS: Anion Gap 14.9 (5-19); Blood Urea Nitrogen 9 mg/dL (8-23); Calcium 8.1 mg/dL (8.5-10.5); Carbon Dioxide 23 mmol/L (22-29); Chloride 107 mmol/L (98-107); Glucose 78 mg/dL (65-115); Magnesium 1.7 mg/dL (1.7-2.3); Osmolality Calculated 292 mOsm/kg (285-295); Sodium 142 mmol/L (136-145)
[2021-11-02 05:27] LABS: Potassium 2.9 mmol/L (3.5-5.1)
[2021-11-02] MEDS: heparin 5,000 unit/mL INJ 1 mL 5000 UNIT SUBCUT ×2 (05:43→15:31)
[2021-11-02] MEDS: potassium chloride ER 20 mEq Tablet 40 MEQ PO ×2 (06:12→10:30)
[2021-11-02] MEDS: insulin nph human 100 units/1 mL 35 UNIT SUBCUT ×2 (06:41→18:16)
--- NOTE | 2021-11-02 07:22 | PC.NURSE ---
Report received from Qi RICHARDSON at this time.
[2021-11-02] MEDS: clopidogrel 75 mg Tablet PO (10:31)
[2021-11-02] MEDS: aspirin 81 mg EC Tablet PO (10:31)
[2021-11-02 11:20] LABS: Glucose Point of Care 119 mg/dL (70-110)
[2021-11-02 11:20] LABS: Glucose Point of Care 125 mg/dL (70-110)
[2021-11-02 12:29] LABS: Glucose Point of Care 210 mg/dL (70-110)
--- NOTE | 2021-11-02 12:35 | P.CONIM_ITS ---
Providers/Reason For Consult Consulting Physician/Specialty*: Dr. Dent/cardiothoracic surgery Reason for Consult*: Bilateral carotid artery disease with recent CVA Attending Physician: Javad Rowell Primary Care Provider: Gee Natarajan MD History of Present Illness History of Present Illness Mayo Haile is a 81 year old male admitted on October 30 after presenting with right facial droop and slurred speech. Apparently, the symptoms have resolved and evaluation has included CTA of the head and neck and MRI of the head. These findings have revealed a distal right ICA stenosis with mild to moderate proximal disease with a proximal left ICA stenosis which is felt to be si gnificant as well as right vertebral disease. He had portion of the CTA was unremarkable though MRI had revealed evidence for an acute nonhemorrhagic left thalamic infarction. By history, patient has apparently had a prior CVA, though I do not have specifics about this event. Transthoracic echocardiogram from October 31 revealed moderate aortic valve stenosis with a calculated valve area of 1.1 cm?. There is mild mitral valve stenosis as well. Compared to prior studies, LV function is described as having improved. No obvious source for intracardiac embolization is described. While he may have still a bit of slurred speech, I believe part of this may actually be a lisp. 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 Review of Systems Const: Denies: fever(s) or chills Eyes: Denies: change in vision or blurry vision Card: Denies: chest pain, palpitations or irregular heart rhythm GI: Denies: abdominal pain, nausea or vomiting Neuro: Reports: Slurred speech present Psych: Denies: anxiety or depression Medications/Allergies Home Medications Medication Instructions Recorded Confirmed Last Taken Type amlodipine 5 mg tablet 5 mg PO DAILY 09/06/19 10/31/21 Unknown History metoprolol tartrate 25 mg tablet 25 mg PO DAILY 09/06/19 10/31/21 Unknown Histor y simvastatin 40 mg tablet 40 mg PO DAILY 09/06/19 10/31/21 Unknown History aspirin 81 mg tablet,delayed 81 mg PO DAILY 09/13/19 10/31/21 Unknown History release (Adult Aspirin Regimen) metformin 850 mg tablet 850 mg PO TID #90 tab 06/05/20 10/31/21 Unknown Rx hydroxychloroquine 200 mg tablet 200 mg PO DAILY #90 tab 09/11/20 10/31/21 Unknown Rx (Plaquenil) furosemide 40 mg tablet 40 mg PO DAILY #90 tab 10/10/20 10/31/21 Unknown Rx potassium chloride 10 mEq 10 meq PO DAILY #90 cap 10/10/20 10/31/21 Unknown Rx capsule,extended release prednisone 10 mg tablet 10 mg PO DAILY #90 tab 11/17/20 10/31/21 Unknown Rx insulin NPH isoph U-100 human 100 30 unit (0.3 mL) SUBCUT BID #3 ml 07/21/21 10/31/21 Unknown Rx unit/mL (3 mL) subcutaneous pen (Humulin N NPH U-100 Insulin KwikPen) Allergies Allergy/AdvReac Type Severity Reaction Status Date / Time No Known Allergies Allergy Verified 10/13/21 13:37 Current Medications Generic Name Dose Route Start Last Admin Trade Name Freq PRN Reason Stop Dose Admin Aspirin 81 mg 10/31/21 09:00 11/02/21 10:31 Aspirin 81 Mg Ec Tablet PO 81 mg DAILY DONTA Administration Atorvastatin Calcium 80 mg 10/31/21 00:15 11/01/21 20:44 Atorvastatin 40 Mg Tablet PO 80 mg BEDTIME DONTA Administration Clopidogrel Bisulfate 75 mg 11/02/21 09:00 11/02/21 10:31 Clopidogrel 75 Mg Tablet PO 75 mg DAILY DONTA Administration Heparin Sodium (Porcine) 5,000 unit 11/01/21 14:00 11/02/21 05:43 Heparin 5,000 Unit/Ml Inj 1 Ml SUBCUT 5,000 unit Q8H DONTA Administration Insulin Human Lispro 0 unit 10/31/21 08:00 11/02/21 08:23 Insulin Lispro 100 Unit/1 Ml SUBCUT Not Given WM&BEDTIME DONTA Protocol Insulin Human NPH 35 unit 10/31/21 00:15 11/02/21 06:41 Insulin Nph Human 100 Units/1 Ml SUBCUT 35 unit BIDAC DONTA Administration PFSH Acute PFSH: Medical History CAD (coronary artery disease) CHF (congestive heart failure), NYHA class II Diabetes mellitus Essential (primary) hypertension YANIV (obstructive sleep apnea) Polymyalgia rheumatica Surgical History History of aortic valve replacement Family History Other Diabetes Heart disease Hypertension Stroke Social History Smoking and tobacco status: never smoked Alcohol intake: former History of recent travel: No Current gender identity: Male Vitals/I&O/Wt Last Vital Signs Temp 97.9 F 11/02/21 11:50 Pulse 92 11/02/21 11:50 Resp 15 11/02/21 11:50 BP 148/70 11/02/21 11:50 Pulse Ox 98 11/02/21 11:50 11/01/21 11/02/21 11/02/21 22:59 06:59 14:59 Intake Total 231.25 / 1600.00 100 / 1700.00 480 / 480 Output Total 200 / 200 400 / 600 Balance 31.25 / 1400.00 -300 / 1100.00 480 / 480 Physical Exam HENMT: COMMON NORMALS: normocephalic, atraumatic, hearing grossly normal bilaterally and external ears normal HEAD & SCALP: normocephalic and atraumatic EXTERNAL EAR: Yes external ears normal Eye: COMMON NORMALS: Equal, round and reactive pupils present, EOMs intact bilaterally and conjunctivae normal CONJUNCTIVA: Yes conjunctivae normal PUPIL: Yes Equal, round and reactive pupils present Neck/C-Spine: COMMON NORMALS: full ROM OTHER: There may be light bilateral bruits which are intermittent. Chest: COMMONS NORMALS: normal inspection of the chest and normal palpation of entire chest wall Resp: COMMON NORMALS: normal respiratory effort, No retractions, No use of accessory muscles and clear to auscultation bilaterally AUSCULTATION: clear to auscultation bilaterally Cardio: COMMON NORMALS: regular rate, regular rhythm and No murmurs present (Cardio) (Despite his documented by echo, I cannot appreciate A substantial murmur) RATE: regular rate RHYTHM: regular rhythm GI: COMMON NORMALS: Normal to inspection, nondistended, normoactive bowel sounds present INSPECTION: Yes central obesity Extremity: COMMON NORMALS: normal to inspection and no clubbing, cyanosis or edema Neuro: COMMON NORMALS: no focal motor deficits and no sensory deficits noted Data : 11/02/21 03:46 11/02/21 03:46 A&P Assessment and plan (1) Bilateral carotid artery stenosis: 81-year-old gentleman presents via EMS the emergency department on October 30 with slurred speech and right facial droop which apparently has resolved of his hospitalization. He is undergone extensive evaluation which has included CTA of the head and neck as well as MRI of the head. Findings have noted severe proximal left ICA stenosis with mild right proximal ICA stenosis and severe distal ICA stenosis. He also has a right vertebral artery stenosis. Initial CTA of the head was unremarkable though MRI had revealed evidence for a nonhemorrhagic acute left thalamic infarct. Plan: I am awaiting 3D reconstruction of the neck portion of the CTA for further delineation of his carotid disease, however, given what appears to be an acute left thalamic infarction and that his symptoms have improved, I generally would not recommend intervention at this time due to the need for substantial heparin- induced anticoagulation during the procedure which might result in production of a hemorrhagic cranial infarction. General recommendation would be for dual antiplatelet therapy at this time to allow for a 6-week recovery. And then assessment for potential interventions. Status: Acute Consult Attestations Medical Necessity Statement: Acute thalamic infarction with bilateral carotid stenosis Coding Level of Care Code Acute Manganese Heater for Antonino Perez Diagnoses Bilateral carotid artery stenosis I65.23
--- NOTE | 2021-11-02 12:40 | PC.SOCIAL ---
IMM update IMM updated with patient's . Verbalized an understanding. Copy Pg 2 left with patient. Initialled, dated, timed, and placed in chart.
[2021-11-02] MEDS: insulin lispro 100 unit/1 mL SUBCUT ×3 (13:00→21:39)
--- NOTE | 2021-11-02 15:28 | P.PN_ITS ---
Subjective Subjective: The patient continues having facial droop and some slurring of the speech which she thinks is better. Denies headache. Denies confusion. No chest pain or palpitations. No shortness of breath. No fever or chills. Medications: Medication Review Details: Generic Name Dose Route Start Last Admin Trade Name Martha PRN Reason Stop Dose Admin Aspirin 81 mg 10/31/21 09:00 11/02/21 10:31 Aspirin 81 Mg Ec Tablet PO 81 mg DAILY DONTA Administration Atorvastatin Calci um 80 mg 10/31/21 00:15 11/01/21 20:44 Atorvastatin 40 Mg Tablet PO 80 mg BEDTIME DONTA Administration Clopidogrel Bisulf ate 75 mg 11/02/21 09:00 11/02/21 10:31 Clopidogrel 75 M g Tablet PO 75 mg DAILY DONTA Administration Heparin Sodium (Po rcine) 5,000 unit 11/01/21 14:00 11/02/21 05:43 Heparin 5,000 Un it/Ml Inj 1 Ml SUBCUT 5,000 unit Q8H DONTA Administration Insulin Human Lisp ro 0 unit 10/31/21 08:00 11/02/21 13:00 Insulin Lispro 1 00 Unit/1 Ml SUBCUT 6 unit WM&BEDTIME DONTA Administration Protocol Insulin Human NPH 35 unit 10/31/21 00:15 11/02/21 06:41 Insulin Nph Cara n 100 Units/1 Ml SUBCUT 35 unit BIDAC DONTA Administration Vitals/I&O/Wt Last Vital Signs Temp 97.9 F 11/02/21 11:50 Pulse 92 11/02/21 11:50 Resp 15 11/02/21 11:50 BP 148/70 11/02/21 11:50 Pulse Ox 98 11/02/21 11:50 11/02/21 11/02/21 11/02/21 06:59 14:59 22:59 Intake Total 100 / 1700.00 680 / 680 Output Total 400 / 600 500 / 500 Balance -300 / 1100.00 180 / 180 Physical Exam Narrative: General: Alert oriented to self and place. Believes the president is [place]. Patient seen laying in bed on his right side talking to speech therapy. HEENT: Normocephalic, atraumatic, EOMI, breathing room air. Cardio: Regular rate rhythm, normal S1-S2, no murmurs rubs gallops, Respiratory: Good bilateral air entry, no wheezes no rhonchi appreciated GI: Abdomen soft, nontender, nondistended, bowel sounds + Extremities: no edema, no cyanosis Neuro: Right-sided facial droop. Slurring speech. No significant weakness in the upper and lower extremities. Data : 11/02/21 03:46 11/02/21 03:46 Other Labs: Radiology Impressions Head CT 10/30/21 21:31 IMPRESSION: 1. Old right cerebellar infarct. 2. Chronic ischemic changes. 3. No acute intracranial finding. ASSESSMENT: ASPECTS ([place] Stroke Program Early CT Score) is 10. Head/Neck CTA 10/30/21 21:31 IMPRESSION: No major intracranial vascular occlusion. IMPRESSION: 1. 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 2. Mild stenosis proximal right internal carotid artery. 3. Severe stenosis proximal left internal carotid artery. 4. Moderate stenosis origin of right vertebral artery REFERENCES: NASCET CRITERIA. The degree of internal carotid artery stenosis is based on NASCET criteria. Normal is no stenosis. Mild is less than 50% stenosis. Moderate is 50-69% stenosis. Severe is 70% to 99% stenosis. Total occlusion is no detectable patent lumen. Chest X-Ray 10/30/21 23:11 IMPRESSION: No acute infiltrate. Head MRI 11/01/21 09:13 IMPRESSION: Nonhemorrhagic acute left thalamic infarct measuring 1 cm. ADDENDUM: 11/01/21 [id number] THIS REPORT CONTAINS FINDINGS THAT MAY BE CRITICAL TO PATIENT CARE. The findings were verbally communicated by me to Charge Nurse Shannon Powell at 1:24 PM [employer]AIL M[employer] B[employer]ER on 11/01/2021. The findings were acknowledged and understood. The charge nurse stated she will let the physician know these results. Laboratory Results WBC 6.7 10^3/uL (4.0-10.0) 11/02/21 03:46 RBC 4.84 10^6/uL (4.1-5.3) 11/02/21 03:46 Hgb 13.7 g/dL (11.7-16.6) 11/02/21 03:46 Hct 42.3 % (42.0-52.0) 11/02/21 03:46 MCV 87.4 fl (80-94) D 11/02/21 03:46 MCH 28.3 pg (28.0-34.0) 11/02/21 03:46 MCHC 32.4 g/dL (30.0-36.0) 11/02/21 03:46 RDW 13.8 % (12.1-15.1) 11/02/21 03:46 Plt Count 222 10^3/cmm (130-400) 11/02/21 03:46 MPV 12.9 fL (7.4-10.4) H 11/02/21 03:46 Neut % (Auto) 48.9 % 11/02/21 03:46 Lymph % (Auto) 38.8 % 11/02/21 03:46 [place] % (Auto) 9.5 % 11/02/21 03:46 Eos % (Auto) 1.5 % 11/02/21 03:46 Baso % (Auto) 1.0 % 11/02/21 03:46 Neut # (Auto) 3.29 10^3/uL (1.8-7.7) 11/02/21 03:46 Lymph # (Auto) 2.6 10^3/uL (0.8-4.8) 11/02/21 03:46 [place] # (Auto) 0.6 10^3/uL (0.2-0.9) 11/02/21 03:46 Eos # (Auto) 0.1 10^3/uL (0.0-0.8) 11/02/21 03:46 Baso # (Auto) 0.1 10^3/uL (0.0-0.1) 11/02/21 03:46 Nucleated RBC % (auto) 0 % 11/02/21 03:46 Nucleated RBCs # 0.0 /100WBC 11/02/21 03:46 PT 12.50 SECONDS (12.1-14.9) 10/30/21 21:44 INR 0.91 (0.8-1.2) 10/30/21 21:44 APTT 21.0 SECONDS (23.9-36.7) L 10/30/21 21:44 Specimen Type Arterial 10/30/21 22:18 Sample Site Radial, right 10/30/21 22:18 ABG pH 7.40 (7.35-7.45) 10/30/21 22:18 ABG pCO2 35.9 mmHg (35-45) 10/30/21 22:18 ABG pO2 69.9 mmHg (80.0-100.0) L 10/30/21 22:18 ABG HCO3 22.2 mmol/L (22-26) 10/30/21 22:18 ABG O2 Saturation 93.5 10/30/21 22:18 ABG Base Excess -2.0 mmol/L (-2.0-2.0) 10/30/21 22:18 Shabbir Test Pos 10/30/21 22:18 A-a O2 Gradient 4.4 mmHg (5-10) L 10/30/21 22:18 Hematocrit 44.9 % (42-52) 10/30/21 22:18 Hgb O2 Saturation 92.1 % (95-100) L 10/30/21 22:18 Carboxyhemoglobin 0.5 %THgb (0.4-20.1) 10/30/21 22:18 Methemoglobin 1.0 % (0.4-1.5) 10/30/21 22:18 Total Hemoglobin 14.7 g/dL (14-18) 10/30/21 22:18 Sodium 138.0 mmol/L (131-143) 10/30/21 22:18 Potassium 3.2 mmol/L (3.5-5.0) L 10/30/21 22:18 Glucose 424.0 mg/dL (70-115) H 10/30/21 22:18 Ionized Calcium 1.2 mmol/L (1.1-1.4) 10/30/21 22:18 FiO2 21.0 % 10/30/21 22:18 Information Assurance Analyst ID [email or web address] 10/30/21 22:18 Sodium 142 mmol/L (136-145) 11/02/21 03:46 Potassium 2.9 mmol/L (3.5-5.1) L 11/02/21 03:46 Chloride 107 mmol/L (98-107) 11/02/21 03:46 Carbon Dioxide 23 mmol/L (22-29) 11/02/21 03:46 Anion Gap 14.9 (5-19) 11/02/21 03:46 BUN 9 mg/dL (8-23) 11/02/21 03:46 Creatinine 0.6 mg/dL (0.7-1.2) L 11/02/21 03:46 GFR Calculation Not Reportable 11/02/21 03:46 Glucose 78 mg/dL (65-115) 11/02/21 03:46 POC Glucose 210 mg/dL (70-110) H 11/02/21 12:10 Calculated Osmolality 292 mOsm/kg (285-295) 11/02/21 03:46 Calcium 8.1 mg/dL (8.5-10.5) L 11/02/21 03:46 Magnesium 1.7 mg/dL (1.7-2.3) 11/02/21 03:46 Total Bilirubin 0.3 mg/dL (0.15-1.2) 10/30/21 21:44 AST 11 U/L (0-40) 10/30/21 21:44 ALT 6 U/L (0-41) 10/30/21 21:44 Alkaline Phosphatase 113 IU/L (40-130) 10/30/21 21:44 Troponin T Baseline 40 ng/L (0-15) H 10/30/21 21:44 Troponin T 120 Minute 39.96 ng/L (0-15) H 10/31/21 00:51 Delta Troponin T -0.04 ABS# (0-10) L 10/31/21 00:51 Troponin T Hi Sens 6Hr 41.96 ng/L (0-15) H 10/31/21 04:40 Troponin T Hi Sens 6Hr Delta 1.96 ng/L (0-12) 10/31/21 04:40 Total Protein 5.8 g/dL (6.6-8.7) L 10/30/21 21:44 Albumin 4.1 g/dL (3.5-5.2) 10/30/21 21:44 Globulin 1.7 g/dL (1.3-4.6) 10/30/21 21:44 Triglycerides 210 mg/dL (0-150) H 10/31/21 04:40 Cholesterol 289 mg/dL (0-200) H 10/31/21 04:40 LDL Cholesterol, Calc 218 mg/dL (50-129) H 10/31/21 04:40 HDL Cholesterol 29 mg/dL (60-100) L 10/31/21 04:40 LDL/HDL Ratio 7.52 RATIO (0.00-3.22) H 10/31/21 04:40 Cholesterol/HDL Ratio 9.97 mg/dL (1.0-5.00) H 10/31/21 04:40 Vitamin B12 568 pg/mL (232-1245) 10/31/21 00:51 Folate 14.4 ng/mL (4.5-32.2) 10/31/21 00:51 TSH 2.12 uIU/mL (0.27-4.20) 10/31/21 00:51 Free T4 1.05 ng/dL (0.82-1.77) 10/31/21 00:51 Urine Color Straw (Yellow) 10/30/21 22:38 Urine Appearance Clear (CLEAR) 10/30/21 22:38 Urine pH 5 (5-7) 10/30/21 22:38 Ur Specific [place] 1.010 (1.005-1.030) 10/30/21 22:38 Urine Protein Neg (Negative) 10/30/21 22:38 Urine Glucose (UA) 4+ (Normal) H 10/30/21 22:38 Urine Ketones 1+ (Negative) H 10/30/21 22:38 Urine Blood Neg (Negative) 10/30/21 22:38 Urine Nitrate Negative (Negative) 10/30/21 22:38 Urine Bilirubin Neg (Negative) 10/30/21 22:38 Urine Urobilinogen Norm mg/dL (Negative) 10/30/21 22:38 Ur Leukocyte Esterase Negative (Negative) 10/30/21 22:38 Urine Opiates Screen Negative ng/mL (Negative) 10/30/21 22:38 Ur Barbiturates Screen Negative ng/mL (Negative) 10/30/21 22:38 Ur Phencyclidine Scrn Negative ng/mL (Negative) 10/30/21 22:38 Ur Amphetamines Screen Negative ng/mL (Negative) 10/30/21 22:38 U Benzodiazepines Scrn Negative ng/mL (Negative) 10/30/21 22:38 Urine Cocaine Screen Negative ng/mL (Negative) 10/30/21 22:38 U Marijuana (THC) Screen Negative ng/mL (Negative) 10/30/21 22:38 A&P Assessment and plan (1) Inflammatory arthritis: Status: Acute (2) Impacted cerumen, bilateral: Status: Acute (3) Polymyalgia rheumatica: Status: Acute (4) YANIV (obstructive sleep apnea): Status: Acute (5) Essential (primary) hypertension: Status: Acute (6) Diabetes mellitus: Status: Acute (7) CHF (congestive heart failure), NYHA class II: Status: Acute (8) CAD (coronary artery disease): Status: Acute Plan #TIA #History of prior CVA #PAD #Hyponatremia #Polymyalgia Rheumatica #Obstructive Sleep Apnnea #Hx of AV replacement #Hx of CHF, CAD #Diabetes Mellitus #Hyperlipidemia #Hypertension #Obesity -CT head unremarkable however CT of the head and neck demonstrates severe stenosis of the left internal carotid artery, severe stenosis of the right internal carotid artery, moderate stenosis at the origin of the right vertebral artery.? - MRI brain to be done today. Further management as per results. - Monitor patient on telemetry to rule out occult arrythmia - PT/OT - Speech swallow eval - COntinue on aspirin, atorvastatin. Will hold off on Plavix due to potential for surgery for Carotid - Dr. Mccord not corporate health consultant today. Consult in AM for further recommendations Full Code DVT PPX: heparin Attempted to contact family and update but unable to get them on the phone. Could not leave voicemail. [place] Acute left thalamic CVA. Continuing dual antiplatelet therapy, high intensity statin, PT OT, speech evaluation and treatment. Assessing his discharge needs. Peripheral arterial disease. CTA revealed bilateral severe carotid stenosis. Discussed with Dr. Mccord. I appreciate his input and recommendations. Additional testing is ordered. He suspects that proximal left carotid lesion is the culprit. Carotid endarterectomy is considered but would be high risk at this stage due to risk of hemorrhagic conversion. For now continuing current conservative management. Hypertension. Stable. Continue current management.Gradually resume home medications. Diabetes. Continue NPH and insulin sliding scale. DVT prophylaxis. Heparin. The plan of care was discussed with the patient. He verbalized understanding and agreement. Discussed with multidisciplinary team. Attestations Medical Necessity Statement*: The plan of care requires inpatient management Coding Level of Care Code Acute Accounting Generalist for [facility] Fwd Diagnoses Inflammatory arthritis M19.90 Impacted cerumen, bilateral H61.23 Polymyalgia rheumatica M35.3 YANIV (obstructive sleep apnea) G47.33 Essential (primary) hypertension I10 Diabetes mellitus E11.9 CHF (congestive heart failure), NYHA class II I50.9 CAD (coronary artery disease) I25.10
[2021-11-02 17:24] LABS: Glucose Point of Care 215 mg/dL (70-110)
--- NOTE | 2021-11-02 18:48 | PC.NURSE ---
Report to Qi RICHARDSON at this time.
[2021-11-02] MEDS: atorvastatin 40 mg Tablet 80 MG PO (20:32)
[2021-11-03] VITALS: BP 121/72; PULSE 63; RESP 16; TEMP 36.4; O2SAT 94
[2021-11-03 04:00] VITALS: BP 120/73; PULSE 72; RESP 16; TEMP 36.6; O2SAT 94
[2021-11-03] MEDS: heparin 5,000 unit/mL INJ 1 mL 5000 UNIT SUBCUT (06:09)
[2021-11-03 06:16] LABS: Basophils # 0.1 10^3/uL (0.0-0.1); Basophils % 1.1 %; Eosinophils # 0.2 10^3/uL (0.0-0.8); Eosinophils % 2.4 %; Hematocrit 44.6 % (42.0-52.0); Hemoglobin 14.1 g/dL (11.7-16.6); Lymphocytes # 2.8 10^3/uL (0.8-4.8); Lymphocytes % 41.8 %; Mean Corpuscular HGB Conc 31.6 g/dL (30.0-36.0); Mean Corpuscular Hemoglobin 28.1 pg (28.0-34.0); Mean Platelet Volume 12.4 fL (7.4-10.4); Monocytes # 0.7 10^3/uL (0.2-0.9); Neutrophils # 2.94 10^3/uL (1.8-7.7); Neutrophils % 44.4 %; Nucleated Red Blood Cells % 0 %; Platelet Count 215 10^3/cmm (130-400); Red Blood Count 5.01 10^6/uL (4.1-5.3); Red Cell Distribution Width 14.2 % (12.1-15.1); White Blood Count 6.6 10^3/uL (4.0-10.0)
[2021-11-03 06:38] LABS: Albumin Level 3.1 g/dL (3.5-5.2); Anion Gap 14.6 (5-19); Blood Urea Nitrogen 9 mg/dL (8-23); Carbon Dioxide 21 mmol/L (22-29); Chloride 107 mmol/L (98-107); Glucose 128 mg/dL (65-115); Magnesium 1.8 mg/dL (1.7-2.3); Phosphorus 3.9 mg/dL (2.5-4.5); Potassium 3.6 mmol/L (3.5-5.1); Sodium 139 mmol/L (136-145)
[2021-11-03] MEDS: insulin nph human 100 units/1 mL 35 UNIT SUBCUT (06:44)
[2021-11-03 07:17] VITALS: BP 131/76; PULSE 79; RESP 20; TEMP 36.6; O2SAT 94
[2021-11-03 08:16] LABS: Glucose Point of Care 216 mg/dL (70-110)
[2021-11-03 08:16] LABS: Glucose Point of Care 166 mg/dL (70-110)
[2021-11-03] MEDS: insulin lispro 100 unit/1 mL SUBCUT ×2 (08:53→12:50)
[2021-11-03] MEDS: aspirin 81 mg EC Tablet PO (08:53)
[2021-11-03] MEDS: clopidogrel 75 mg Tablet PO (08:53)
[2021-11-03] MEDS: metoprolol tartrate 25 mg Tablet PO (08:53)
[2021-11-03] MEDS: amlodipine 5 mg Tablet PO (08:53)
[2021-11-03 10:55] VITALS: BP 122/68; PULSE 73; RESP 18; TEMP 36.8; O2SAT 95
--- NOTE | 2021-11-03 11:33 | PM.DCS ---
Discharge Providers Date of Admission: 10/30/21 22:29 Date of Discharge: November 03, 2021 Attending Provider at Admission: Jose L Tello DO Attending Provider at Discharge: Javad Rowell Primary Care Provider: Gee Natarajan MD Diagnoses at Discharge Discharge Diagnosis (1) Bilateral carotid artery stenosis: Status: Acute Reason for Visit Reason for Visit: stroke Hospital Course Hospital Course Please see patient's H&P, consult notes, progress notes for more details. Discharge diagnoses and problem list Acute left thalamic CVA.? Continuing dual antiplatelet therapy, high intensity statin, outpatient PT OT, speech therapy.? Overall the patient is doing well and is ready for discharge. Eager to go home. The symptoms are stable. He is instructed to come back to emergency room if he develops any new or similar symptoms. Case management is working on his discharge needs. Peripheral arterial disease.? CTA revealed bilateral severe carotid stenosis.? Discussed with Dr. Dent.? I appreciate his input and recommendations.? Additional testing is ordered.? He suspects that proximal left carotid lesion is the culprit.? Carotid endarterectomy is considered but would be high risk at this stage due to risk of hemorrhagic conversion.? For now continuing current conservative management. Close outpatient follow-up is recommended. Hypertension.? Stable.? Further adjustments to maintenance medications per primary care physician as needed. Diabetes.? Continue home medications. DVT prophylaxis.? Received heparin. Discussed with multidisciplinary team. Physical Exam Narrative: General: Alert oriented to self and place. Believes the president is [place]. Patient seen laying in bed on his right side talking to speech therapy. HEENT: Normocephalic, atraumatic, EOMI, breathing room air. Cardio: Regular rate rhythm, normal S1-S2, no murmurs rubs gallops, Respiratory: Good bilateral air entry, no wheezes no rhonchi appreciated GI: Abdomen soft, nontender, nondistended, bowel sounds + Extremities: no edema, no cyanosis Neuro: Right-sided facial droop. Slurring speech. No significant weakness in the upper and lower extremities. Discharge Data Studies Completed and Pending Completed Studies During Hospitalization Category Date Time Status CT angio headneck* 46918/54045 Stat Cat Scan 10/30/21 21:[address] head wo con* [id number] Stat Cat Scan 10/30/21 21:31 Completed CXRP [XR chest 1V portable [id number]] Stat Exams 10/30/21 23:11 Completed MR head wo con* [id number] Stat MRI 11/01/21 09:13 Completed CV. echo complete* [id number] Routine Ultrasound 10/31/21 00:00 Completed CV. echo w/w bubble cont [id number] Routine Ultrasound 11/01/21 15:27 Completed US carotid duplex bilateral [CV carotid duplex BI* Ultrasound 11/01/21 15:27 Completed [id number]] Routine Pending at discharge Category Date Time Status Arterial Blood Gas Full Stat Lab 10/30/21 22:18 Results Beta-Hydroxybutyrate Routine Lab 10/30/21 21:44 Received Radiology Impressions Head CT 10/30/21 21:31 IMPRESSION: 1. Old right cerebellar infarct. 2. Chronic ischemic changes. 3. No acute intracranial finding. ASSESSMENT: ASPECTS ([place] Stroke Program Early CT Score) is 10. Head/Neck CTA 10/30/21 21:31 IMPRESSION: No major intracranial vascular occlusion. IMPRESSION: 1. 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 2. Mild stenosis proximal right internal carotid artery. 3. Severe stenosis proximal left internal carotid artery. 4. Moderate stenosis origin of right vertebral artery REFERENCES: NASCET CRITERIA. The degree of internal carotid artery stenosis is based on NASCET criteria. Normal is no stenosis. Mild is less than 50% stenosis. Moderate is 50-69% stenosis. Severe is 70% to 99% stenosis. Total occlusion is no detectable patent lumen. Chest X-Ray 10/30/21 23:11 IMPRESSION: No acute infiltrate. Head MRI 11/01/21 09:13 IMPRESSION: Nonhemorrhagic acute left thalamic infarct measuring 1 cm. ADDENDUM: 11/01/21 4037 THIS REPORT CONTAINS FINDINGS THAT MAY BE CRITICAL TO PATIENT CARE. The findings were verbally communicated by me to Charge Nurse Shannon Powell at 1:24 PM FIREARMS INSTRUCTOR on 11/01/2021. The findings were acknowledged and understood. The charge nurse stated she will let the physician know these results. Laboratory Results WBC 6.6 10^3/uL (4.0-10.0) 11/03/21 04:48 RBC 5.01 10^6/uL (4.1-5.3) 11/03/21 04:48 Hgb 14.1 g/dL (11.7-16.6) 11/03/21 04:48 Hct 44.6 % (42.0-52.0) 11/03/21 04:48 MCV 89.0 fl (80-94) 11/03/21 04:48 MCH 28.1 pg (28.0-34.0) 11/03/21 04:48 MCHC 31.6 g/dL (30.0-36.0) 11/03/21 04:48 RDW 14.2 % (12.1-15.1) 11/03/21 04:48 Plt Count 215 10^3/cmm (130-400) 11/03/21 04:48 MPV 12.4 fL (7.4-10.4) H 11/03/21 04:48 Neut % (Auto) 44.4 % 11/03/21 04:48 Lymph % (Auto) 41.8 % 11/03/21 04:48 [place] % (Auto) 10.0 % 11/03/21 04:48 Eos % (Auto) 2.4 % 11/03/21 04:48 Baso % (Auto) 1.1 % 11/03/21 04:48 Neut # (Auto) 2.94 10^3/uL (1.8-7.7) 11/03/21 04:48 Lymph # (Auto) 2.8 10^3/uL (0.8-4.8) 11/03/21 04:48 [place] # (Auto) 0.7 10^3/uL (0.2-0.9) 11/03/21 04:48 Eos # (Auto) 0.2 10^3/uL (0.0-0.8) 11/03/21 04:48 Baso # (Auto) 0.1 10^3/uL (0.0-0.1) 11/03/21 04:48 Nucleated RBC % (auto) 0 % 11/03/21 04:48 Nucleated RBCs # 0.0 /100WBC 11/03/21 04:48 PT 12.50 SECONDS (12.1-14.9) 10/30/21 21:44 INR 0.91 (0.8-1.2) 10/30/21 21:44 APTT 21.0 SECONDS (23.9-36.7) L 10/30/21 21:44 Specimen Type Arterial 10/30/21 22:18 Sample Site Radial, right 10/30/21 22:18 ABG pH 7.40 (7.35-7.45) 10/30/21 22:18 ABG pCO2 35.9 mmHg (35-45) 10/30/21 22:18 ABG pO2 69.9 mmHg (80.0-100.0) L 10/30/21 22:18 ABG HCO3 22.2 mmol/L (22-26) 10/30/21 22:18 ABG O2 Saturation 93.5 10/30/21 22:18 ABG Base Excess -2.0 mmol/L (-2.0-2.0) 10/30/21 22:18 Shabbir Test Pos 10/30/21 22:18 A-a O2 Gradient 4.4 mmHg (5-10) L 10/30/21 22:18 Hematocrit 44.9 % (42-52) 10/30/21 22:18 Hgb O2 Saturation 92.1 % (95-100) L 10/30/21 22:18 Carboxyhemoglobin 0.5 %THgb (0.4-20.1) 10/30/21 22:18 Methemoglobin 1.0 % (0.4-1.5) 10/30/21 22:18 Total Hemoglobin 14.7 g/dL (14-18) 10/30/21 22:18 Sodium 138.0 mmol/L (131-143) 10/30/21 22:18 Potassium 3.2 mmol/L (3.5-5.0) L 10/30/21 22:18 Glucose 424.0 mg/dL (70-115) H 10/30/21 22:18 Ionized Calcium 1.2 mmol/L (1.1-1.4) 10/30/21 22:18 FiO2 21.0 % 10/30/21 22:18 Dungeon Master ID [place]wal[place] 10/30/21 22:18 Sodium 139 mmol/L (136-145) 11/03/21 04:48 Sodium Cancelled 11/03/21 04:48 Potassium 3.6 mmol/L (3.5-5.1) 11/03/21 04:48 Potassium Cancelled 11/03/21 04:48 Chloride 107 mmol/L (98-107) 11/03/21 04:48 Chloride Cancelled 11/03/21 04:48 Carbon Dioxide 21 mmol/L (22-29) L 11/03/21 04:48 Carbon Dioxide Cancelled 11/03/21 04:48 Anion Gap 14.6 (5-19) 11/03/21 04:48 Anion Gap Cancelled 11/03/21 04:48 BUN 9 mg/dL (8-23) 11/03/21 04:48 BUN Cancelled 11/03/21 04:48 Creatinine 0.6 mg/dL (0.7-1.2) L 11/03/21 04:48 Creatinine Cancelled 11/03/21 04:48 GFR Calculation Cancelled 11/03/21 04:48 GFR Calculation Not Reportable 11/03/21 04:48 Glucose 128 mg/dL (65-115) H 11/03/21 04:48 Glucose Cancelled 11/03/21 04:48 POC Glucose 166 mg/dL (70-110) H 11/03/21 06:43 Calculated Osmolality 292 mOsm/kg (285-295) 11/02/21 03:46 Calcium 9.0 mg/dL (8.5-10.5) 11/03/21 04:48 Calcium Cancelled 11/03/21 04:48 Phosphorus 3.9 mg/dL (2.5-4.5) 11/03/21 04:48 Phosphorus Cancelled 11/03/21 04:48 Magnesium 1.8 mg/dL (1.7-2.3) 11/03/21 04:48 Total Bilirubin 0.3 mg/dL (0.15-1.2) 10/30/21 21:44 AST 11 U/L (0-40) 10/30/21 21:44 ALT 6 U/L (0-41) 10/30/21 21:44 Alkaline Phosphatase 113 IU/L (40-130) 10/30/21 21:44 Troponin T Baseline 40 ng/L (0-15) H 10/30/21 21:44 Troponin T 120 Minute 39.96 ng/L (0-15) H 10/31/21 00:51 Delta Troponin T -0.04 ABS# (0-10) L 10/31/21 00:51 Troponin T Hi Sens 6Hr 41.96 ng/L (0-15) H 10/31/21 04:40 Troponin T Hi Sens 6Hr Delta 1.96 ng/L (0-12) 10/31/21 04:40 Total Protein 5.8 g/dL (6.6-8.7) L 10/30/21 21:44 Albumin 3.1 g/dL (3.5-5.2) L 11/03/21 04:48 Albumin Cancelled 11/03/21 04:48 Globulin 1.7 g/dL (1.3-4.6) 10/30/21 21:44 Triglycerides 210 mg/dL (0-150) H 10/31/21 04:40 Cholesterol 289 mg/dL (0-200) H 10/31/21 04:40 LDL Cholesterol, Calc 218 mg/dL (50-129) H 10/31/21 04:40 HDL Cholesterol 29 mg/dL (60-100) L 10/31/21 04:40 LDL/HDL Ratio 7.52 RATIO (0.00-3.22) H 10/31/21 04:40 Cholesterol/HDL Ratio 9.97 mg/dL (1.0-5.00) H 10/31/21 04:40 Vitamin B12 568 pg/mL (232-1245) 10/31/21 00:51 Folate 14.4 ng/mL (4.5-32.2) 10/31/21 00:51 TSH 2.12 uIU/mL (0.27-4.20) 10/31/21 00:51 Free T4 1.05 ng/dL (0.82-1.77) 10/31/21 00:51 Urine Color Straw (Yellow) 10/30/21 22:38 Urine Appearance Clear (CLEAR) 10/30/21 22:38 Urine pH 5 (5-7) 10/30/21 22:38 Ur Specific [place] 1.010 (1.005-1.030) 10/30/21 22:38 Urine Protein Neg (Negative) 10/30/21 22:38 Urine Glucose (UA) 4+ (Normal) H 10/30/21 22:38 Urine Ketones 1+ (Negative) H 10/30/21 22:38 Urine Blood Neg (Negative) 10/30/21 22:38 Urine Nitrate Negative (Negative) 10/30/21 22:38 Urine Bilirubin Neg (Negative) 10/30/21 22:38 Urine Urobilinogen Norm mg/dL (Negative) 10/30/21 22:38 Ur Leukocyte Esterase Negative (Negative) 10/30/21 22:38 Urine Opiates Screen Negative ng/mL (Negative) 10/30/21 22:38 Ur Barbiturates Screen Negative ng/mL (Negative) 10/30/21 22:38 Ur Phencyclidine Scrn Negative ng/mL (Negative) 10/30/21 22:38 Ur Amphetamines Screen Negative ng/mL (Negative) 10/30/21 22:38 U Benzodiazepines Scrn Negative ng/mL (Negative) 10/30/21 22:38 Urine Cocaine Screen Negative ng/mL (Negative) 10/30/21 22:38 U Marijuana (THC) Screen Negative ng/mL (Negative) 10/30/21 22:38 Vitals Last Vital Signs Temp 98.3 F 11/03/21 10:55 Pulse 73 11/03/21 10:55 Resp 18 11/03/21 10:55 BP 122/68 11/03/21 10:55 Pulse Ox 95 11/03/21 10:55 Discharge Plan Discharge Patient Disposition: Home Condition: Stable Prescriptions: New clopidogrel 75 mg Tablet 75 mg PO DAILY Qty: 30 0RF Continued aspirin [Adult Aspirin Regimen] 81 mg tablet,delayed release (DR/EC) 81 mg PO DAILY 0RF prednisone 10 mg tablet 10 mg PO DAILY Qty: 90 3RF simvastatin 40 mg tablet 40 mg PO DAILY 0RF amlodipine 5 mg tablet 5 mg PO DAILY 0RF metoprolol tartrate 25 mg tablet 25 mg PO DAILY 0RF hydroxychloroquine [Plaquenil] 200 mg tablet 200 mg PO DAILY Qty: 90 3RF metformin 850 mg tablet 850 mg PO TID Qty: 90 3RF furosemide 40 mg tablet 40 mg PO DAILY Qty: 90 3RF potassium chloride 10 mEq capsule, extended release 10 meq PO DAILY Qty: 90 3RF Humulin N NPH Insulin KwikPen 100 unit/mL (3 mL) insulin pen 30 unit SUBCUT BID Qty: 3 3RF Discharge Orders: Discharge Order (Routine); Ordered 11/03/21 Ordered By: Javad Rowell Referrals: Gee Natarajan MD [Primary Care Provider] - 4-7 days Riley Dent MD [Physician] - 2 weeks Discharge Diet: Cardiac and Low Cholesterol Discharge Activity: Increase activity as tolerated Patient Instructions: Clopidogrel (By mouth), Carotid Artery Disease (DC), Ischemic Stroke (DC) Activity Restrictions/Additional Instructions: Please come back to emergency room if you develop any new weakness, difficulty with speech, gait, vision, numbness, headache, chest pain, palpitations, dizziness or lightheadedness, rectal blood or black stool, muscle aches, dark or bloody urine or any other new complaints. Please do not change her medications without speaking with your primary care physician and Dr. Dent. Discharge Attestations Time Spent in Discharge Care*: greater than 30 min Quality Metrics Clinical Quality Measures [ Cerebrovascular Accident { Contraindication to Antithrombotic: None; antithrombotic prescribed; Contraindication to Anticoagulation: Overlap treatment not indicated; Contraindication to Statin: None; Statin prescribed;}] Coding Level of Care Code Acute Chg FW DC note Diagnoses Bilateral carotid artery stenosis I65.23
[2021-11-03 11:49] LABS: Glucose Point of Care 188 mg/dL (70-110)
--- NOTE | 2021-11-03 15:05 | PC.NURSE ---
THIS NURSE IS TAKING OVER CARE OF PT AT THIS TIME. REPORT RECEIVED FROM Murtaza CHIRINOS RN. PT IS RESTING IN COMFORTABLY IN BED. THIS NURSE WILL GO OVER PTS DISCHARGE INSTRUCTIONS. WE ARE JUST WAITING FOR HIS TO GET HERE. WILL CONTINUE TO MONITOR PT UNTIL RIDE GETS HERE.
[2021-11-03 15:22] VITALS: BP 86/48; BP 87/54; PULSE 68; RESP 18; TEMP 36.7; O2SAT 96
--- NOTE | 2021-11-03 15:22 | PC.NURSE ---
I reported the low bp to the nurse. 87/54 86/48
--- NOTE | 2021-11-03 16:17 | PC.NURSE ---
discharge paperwork gone over with pt. all questions answered. iv removed. pt tolerated well. catheter tip intact. pt safely wheeled out with family.
[2021-11-03 16:18] VITALS: BP 86/48; PULSE 68; RESP 18; TEMP 36.7; O2SAT 96
[2021-11-05 02:53] LABS: Beta-Hydroxybutyrate 2.41 mmol/L
== END 2021-11-03 16:19 | disposition home or self-care (01) | DRG 66 ==
LOC: ER 22:38 → MEDSURG 23:18
PROVIDERS: Emergency Medicine; Internal Medicine; Admitting Provider Internal Medicine; Emergency Provider Emergency Medicine; PCP Internal Medicine; Visit Provider Internal Medicine
DX: I63.9 Cerebral infarction, unspecified (principal); R29.810 Facial weakness; R47.01 Aphasia; R29.707 NIHSS score 7; I25.10 Atherosclerotic heart disease of native coronary artery without angina pectoris; I11.0 Hypertensive heart disease with heart failure; I50.9 Heart failure, unspecified; E11.65 Type 2 diabetes mellitus with hyperglycemia; E11.51 Type 2 diabetes mellitus with diabetic peripheral angiopathy without gangrene; G47.33 Obstructive sleep apnea (adult) (pediatric); M35.3 Polymyalgia rheumatica; Z95.2 Presence of prosthetic heart valve; Z79.82 Long term (current) use of aspirin; Z79.4 Long term (current) use of insulin; I65.23 Occlusion and stenosis of bilateral carotid arteries; I65.01 Occlusion and stenosis of right vertebral artery; Z86.73 Personal history of transient ischemic attack (TIA), and cerebral infarction without residual deficits; Z99.89 Dependence on other enabling machines and devices; F10.21 Alcohol dependence, in remission; I35.0 Nonrheumatic aortic (valve) stenosis; H61.23 Impacted cerumen, bilateral; E66.9 Obesity, unspecified; Z68.35 Body mass index [BMI] 35.0-35.9, adult; E78.5 Hyperlipidemia, unspecified
CPT/HCPCS: 36415; 36416; 36600; 70450; 70496; 70498; 70551; 71045; 80048; 80051; 80053; 80061; 80069; 80306; 81003; 82010; 82330; 82607; 82746; 82805; 82962; 83735; 84439; 84443; 84484; 85025; 85610; 85730; 92507; 92523; 92526; 92610; 93005; 93306; 93880; 96372; 96374; 97116; 97161; 97530; 99285; C8929; J1644; J1815; J7030; J7040; Q9967

== ENCOUNTER → 2021-12-10 13:19 | Outpatient (BNVA) | payer MEDICARE, SELFPAY | PROVIDERS: PCP Internal Medicine; Visit Provider Thoracic Surgery (Cardiothoracic Vascular Surgery) | DX: Z09 Encounter for follow-up examination after completed treatment for conditions other than malignant neoplasm (principal); I65.23 Occlusion and stenosis of bilateral carotid arteries; Z87.891 Personal history of nicotine dependence | CPT/HCPCS: 99213; 99215 ==

== ENCOUNTER 2022-05-29 10:04 | Emergency (ER) | payer MEDICARE, SELFPAY ==
[2022-05-29 10:04] VITALS: BP 0/0; PULSE 0; RESP 20; TEMP 36.1; O2SAT 0; BMI 28.1
--- NOTE | 2022-05-29 10:10 | PC.NURSE ---
TOD called at [address] Teran.
--- NOTE | 2022-05-29 10:21 | PC.NURSE ---
1006 patient received one round of EPI.
--- NOTE | 2022-05-29 10:58 | W.ED.GENADLT ---
HPI - General Adult General: Chief complaint: Cardiac Arrest/CPR Stated complaint: UNRESPONSIVE; CPR IN PROGRESS Time Seen by Provider: 05/29/22 10:22 History of Present Illness: 81-year-old male presents emergency room via EMS CPR is in progress. EMS reports that he is a downtime of 54 minutes or more in asystole. He has received ACLS protocols during that time. He was intubated with a 7.5 ET tube at 24 cm at the teeth. Patient is diabetic he has a history of coronary disease and carotid stenosis previous strokes he not been feeling well for the last day. It got worse this morning and difficulty breathing and family called EMS. Patient went into respiratory arrest shortly after EMS arrived. Review of Systems General: Reports: ROS unobtainable due to endotracheal tube PFSH ED PFSH: Medical History (Updated 05/29/22 @ 16:47 by Boom Teran DO) CAD (coronary artery disease) CHF (congestive heart failure), NYHA class II Diabetes mellitus Essential (primary) hypertension Impacted cerumen, bilateral Inflammatory arthritis YANIV (obstructive sleep apnea) Polymyalgia rheumatica Surgical History History of aortic valve replacement Family History Other Diabetes Heart disease Hypertension Stroke Social History Smoking and tobacco status: former smoker Alcohol intake: former Household members: spouse Marital status: Number of children: 1 Pets and animals: No History of recent travel: No Current gender identity: Male Physical Exam Narrative: EXAM NARRATIVE: As needed progress. No spontaneous respiratory effort no cardiac activity. Course Vital Signs: Vital signs: Vital Signs Temperature 97 F L 05/29/22 10:04 Pulse Rate 0 L 05/29/22 10:04 Respiratory Rate 20 H 05/29/22 10:04 Blood Pressure 0/0 05/29/22 10:04 Pulse Oximetry 0 L 05/29/22 10:04 Oxygen Delivery Me thod 05/29/22 10:04 MDM - General Adult Medical Decision Making Confirmed history with EMS after arrival reviewed patient's history while CPR was in progress while in the room. Patient given 1 of epi another round of CPR was continued at the next pulse check he had very slight irregular cardiac activity looks like it might even be V. fib however within seconds it deteriorated to asystole and remained there. At that point was a stated efforts ceased. Informed the family. Discharge Plan Discharge Patient Disposition: Clinical Impression: Acute myocardial infarction, Cardiac arrest, Acute respiratory failure Condition: Stable Prescriptions: No Action aspirin [Adult Aspirin Regimen] 81 mg tablet,delayed release (DR/EC) 81 mg PO DAILY simvastatin 40 mg tablet 40 mg PO DAILY amlodipine 5 mg tablet 5 mg PO DAILY hydroxychloroquine [Plaquenil] 200 mg tablet 200 mg PO DAILY Qty: 90 3RF metformin 850 mg tablet 850 mg PO TID Qty: 90 3RF Humulin N NPH Insulin KwikPen 100 unit/mL (3 mL) insulin pen 30 unit SUBCUT BID Qty: 3 3RF furosemide 40 mg tablet 40 mg PO DAILY Qty: 90 3RF clopidogrel 75 mg Tablet 75 mg PO DAILY Qty: 30 0RF Referrals: Gee Natarajan MD [Primary Care Provider] - Coding Level of Care Code ED Car Cleaning Supervisor for Antonino Perez
== END 2022-05-29 12:23 | disposition expired ==
PROVIDERS: Emergency Provider Family Medicine; PCP Internal Medicine
DX: I46.9 Cardiac arrest, cause unspecified (principal); I21.9 Acute myocardial infarction, unspecified; J96.00 Acute respiratory failure, unspecified whether with hypoxia or hypercapnia; Z79.82 Long term (current) use of aspirin; Z79.84 Long term (current) use of oral hypoglycemic drugs; Z79.02 Long term (current) use of antithrombotics/antiplatelets; Z79.4 Long term (current) use of insulin; I25.10 Atherosclerotic heart disease of native coronary artery without angina pectoris; I11.0 Hypertensive heart disease with heart failure; I50.9 Heart failure, unspecified; E11.9 Type 2 diabetes mellitus without complications; Z87.891 Personal history of nicotine dependence
CPT/HCPCS: 99283